=== PATIENT | female | born 1990 | race Caucasian/White ===

== ENCOUNTER 2016-09-07 17:01 | Emergency (ER) | payer OTHER ==
[~2016-09-07] VITALS: Wt 54.4 kg
[~2016-09-07 17:01] MED LIST: AMOXIL500 MG PO; ANAPROX DS550 MG PO; BACTRIM DS 8001 TA1 PO; CALCIUM 500 + D1 TA1 PO; CIPRO500 MG PO; CLARITIN10 MG PO; COLACE100 MG PO; DIFLUCAN100 MG PO; FLEXERIL10 MG PO; FOLIC ACID1 MG PO; KEFLEX500 MG PO; LEVAQUIN250 MG PO; LEVEMIR100 U/ML SC; LEVOFLOXACIN500 MG PO; LISINOPRIL10 MG PO; MACROBID100 M1 PO; MEDROL DOSEPAK4 MG PO; MIRALAX17 GM/PACK PO; MOTRIN600 MG PO; MOTRIN800 MG PO; Motrin,Rufen800 MG PO; NEXIUM40 MG PO; NOVOLIN R100 U/ML SC; NOVOLOG1 UNIT/0.0 SC; NOVOLOG100 U/ML SC; PAMELOR10 MG PO; PRENATAL1 TA7 PO; PROAIR HFA0.09 MG/AC INH; QVAR 80MCG/INH7.3 G1 INH; QVAR40 MCG INH; REGLAN10 MG PO; ROBITUSSIN AC 110 ML PO; SEPTRA DS 800 M1 TAB PO; TYLENOL W/CODEI1 TA2 PO; ULTRAM50 MG PO; VENTOLIN0.09 MG/AC INH; VICODIN 5/500 505 MG PO; VITAMIN D50000 I2 PO; ZANTAC150 MG PO; ZOFRAN ODT8 MG PO; ZOFRAN4 MG PO
[2016-09-07] MEDS ORDERED: LEVEMIR10 ML SC (17:11)
[2016-09-07 17:49] LABS: BILIRUBIN NEGATIVE (NEGATIVE); BLOOD NEGATIVE (NEGATIVE); CLARITY SL CLOUDY (CLEAR); COLOR YELLOW (YELLOW); GLUCOSE 3+ (NEGATIVE); KETONE TRACE (NEGATIVE); LEUKO ESTERASE TRACE (NEGATIVE); NITRITE POSITIVE (NEGATIVE); PROTEIN NEGATIVE (NEGATIVE); UROBILINOGEN 0.2 E.U./dl (0.2-1.0)
[2016-09-07 17:58] LABS: BACTERIA 2+; EPITHELIAL CELLS 15-20; URINE REFLEX COMMENT YES (NO)
[2016-09-07] MEDS ORDERED: DIFLUCAN150 MG PO (18:13)
[2016-09-07] MEDS ORDERED: VIBRAMYCIN100 MG PO (18:13)
[2016-09-07] MEDS ORDERED: LEVAQUIN250 M1 PO (18:13)
== END 2016-09-07 18:17 | disposition home or self-care (01) ==
LOC: ED 17:01
PROVIDERS: Emergency Medicine
DX: N39.0 Urinary tract infection, site not specified (principal); F12.10 Cannabis abuse, uncomplicated; E13.10 Other specified diabetes mellitus with ketoacidosis without coma; Z90.49 Acquired absence of other specified parts of digestive tract; Z98.890 Other specified postprocedural states; Z98.51 Tubal ligation status; Z20.2 Contact with and (suspected) exposure to infections with a predominantly sexual mode of transmission

== ENCOUNTER 2017-03-08 01:13 | Emergency (ER) | payer OTHER ==
[~2017-03-08] VITALS: Ht 162.5 cm; Wt 54.4 kg
[~2017-03-08 01:13] MED LIST changes: +DIFLUCAN150 MG PO; +LEVAQUIN250 M1 PO; +LEVEMIR10 ML SC; +VIBRAMYCIN100 MG PO
[2017-03-08 01:45] LABS: BASO # 0.1 10*3/uL (0.0-0.1); BASO % 0.7 % (0.0-1.0); EOS # 0.1 10*3/uL (0.0-0.4); EOS % 1.3 % (1.0-4.0); HEMATOCRIT 37.1 % (37.0-47.0); HEMOGLOBIN 12.3 g/dl (12.0-16.0); LYMPH # 2.9 10*3/uL (1.3-4.4); LYMPH % 32.6 % (27.0-41.0); MEAN CELL VOLUME 92.3 fl (81.0-99.0); MEAN CORPUSCULAR HGB 30.6 pg (27.0-31.0); MEAN CORPUSCULAR HGB CONC 33.2 g/dl (33.0-37.0); MEAN PLATELET VOLUME 9.8 fl (9.6-12.3); MONO # 0.9 10*3/uL (0.1-1.0); MONO % 10.3 % (3.0-9.0); NEUT # 4.8 10*3/uL (2.3-7.9); NEUT % 54.8 % (47.0-73.0); PLATELET COUNT AUTOMATED 328 10*3/uL (130-400); RED BLOOD COUNT 4.02 10*6/uL (4.10-5.10); RED CELL DISTRI WIDTH 13.2 % (0-14.5); WHITE BLOOD COUNT 8.7 10*3/uL (4.8-10.8)
[2017-03-08 01:56] LABS: BILIRUBIN NEGATIVE (NEGATIVE); BLOOD 1+ (NEGATIVE); CLARITY SL CLOUDY (CLEAR); COLOR YELLOW (YELLOW); GLUCOSE 3+ (NEGATIVE); KETONE NEGATIVE (NEGATIVE); LEUKO ESTERASE TRACE (NEGATIVE); NITRITE NEGATIVE (NEGATIVE); PROTEIN NEGATIVE (NEGATIVE); SPECIFIC GRAVITY <= 1.005 (1.005-1.030); UROBILINOGEN 0.2 E.U./dl (0.2-1.0)
[2017-03-08 02:02] LABS: BUN 17 mg/dl (7-24); CARBON DIOXIDE 27 mmol/L (21-32); CHLORIDE 95 mmol/L (98-107); EST GLOM FILT AFRICAN AMERICAN > 60 ml/min; POTASSIUM 4.3 mmol/L (3.5-5.1); SODIUM 133 mmol/L (136-145)
[2017-03-08 02:05] LABS: B-hCG (QUALITATIVE) NEGATIVE (NEGATIVE)
[2017-03-08 02:06] LABS: GLUCOSE 702 mg/dL (65-99)
[2017-03-08 02:08] LABS: BACTERIA TRACE
[2017-03-08] MEDS ORDERED: NORCO 10-325 T1 EACH PO (03:50)
[2017-03-08] MEDS ORDERED: VALACYCLOVIR HYD1 GM PO (03:50)
== END 2017-03-08 04:20 | disposition home or self-care (01) ==
LOC: ED 01:13
PROVIDERS: Emergency Medicine
DX: B00.9 Herpesviral infection, unspecified (principal); R73.9 Hyperglycemia, unspecified; E13.10 Other specified diabetes mellitus with ketoacidosis without coma; F17.200 Nicotine dependence, unspecified, uncomplicated; F12.10 Cannabis abuse, uncomplicated; Z79.4 Long term (current) use of insulin

== ENCOUNTER 2017-05-24 10:01 | Inpatient (IN) | payer OTHER ==
[~2017-05-24] VITALS: Ht 162.5 cm; Wt 52.2 kg
[2017-05-24 10:01] VITALS: BP 116/66
[~2017-05-24 10:01] MED LIST changes: +NORCO 10-325 T1 EACH PO; +VALACYCLOVIR HYD1 GM PO
[2017-05-24 10:18] LABS: BASO # 0.1 10*3/uL (0.0-0.1); BASO % 0.5 % (0.0-1.0); HEMATOCRIT 39.3 % (37.0-47.0); HEMOGLOBIN 13.5 g/dl (12.0-16.0); LYMPH # 2.1 10*3/uL (1.3-4.4); LYMPH % 10.6 % (27.0-41.0); MEAN CELL VOLUME 89.7 fl (81.0-99.0); MEAN CORPUSCULAR HGB 30.8 pg (27.0-31.0); MEAN CORPUSCULAR HGB CONC 34.4 g/dl (33.0-37.0); MEAN PLATELET VOLUME 9.7 fl (9.6-12.3); MONO # 0.9 10*3/uL (0.1-1.0); MONO % 4.5 % (3.0-9.0); NEUT # 16.3 10*3/uL (2.3-7.9); NEUT % 83.9 % (47.0-73.0); PLATELET COUNT AUTOMATED 478 10*3/uL (130-400); RED BLOOD COUNT 4.38 10*6/uL (4.10-5.10); RED CELL DISTRI WIDTH 12.3 % (0-14.5); WHITE BLOOD COUNT 19.5 10*3/uL (4.8-10.8)
[2017-05-24 10:34] LABS: ALBUMIN 4.3 gm/dl (3.1-4.5); ALKALINE PHOSPHATASE 94 U/L (45-117); BUN 14 mg/dl (7-24); CHLORIDE 99 mmol/L (98-107); CREATININE 0.62 mg/dL (0.55-1.02); POTASSIUM 3.6 mmol/L (3.5-5.1); SGOT/AST 20 IU/L (3-35); SGPT/ALT 20 U/L (12-78); SODIUM 139 mmol/L (136-145); TOTAL PROTEIN 8.6 gm/dL (6.4-8.2)
[2017-05-24 10:40] LABS: ETHYL ALCOHOL < 3.0 mg/dl (<3)
--- NOTE | 2017-05-24 11:00 | NUR ---
VOMITING RETURNS, DR MADE AWARE. AWAITING URINE SPECIMEN.
--- NOTE | 2017-05-24 11:40 | NUR ---
PT UNABLE TO PROVIDE URINE ON BEDPAN, REFUSES CATH SPECIMEN. REMEDICATED FOR NAUSEA NOW. SALINE INFUSED.
[2017-05-24 12:42] LABS: BILIRUBIN NEGATIVE (NEGATIVE); BLOOD NEGATIVE (NEGATIVE); CLARITY SL CLOUDY (CLEAR); COLOR YELLOW (YELLOW); GLUCOSE 2+ (NEGATIVE); KETONE 3+ (NEGATIVE); LEUKO ESTERASE NEGATIVE (NEGATIVE); NITRITE POSITIVE (NEGATIVE); SPECIFIC GRAVITY 1.015 (1.005-1.030); UROBILINOGEN 0.2 E.U./dl (0.2-1.0)
[2017-05-24 12:52] VITALS: BP 102/56
[2017-05-24 12:53] LABS: BACTERIA 3+
[2017-05-24 13:28] LABS: URINE AMPHETAMINES < 1000 (1000ng/ml); URINE BARBITURATES < 200 (200ng/ml); URINE BENZODIAZEPINES < 200 (200ng/ml); URINE CANNABINOIDS (THC) > 50 (50ng/ml); URINE COCAINE < 300 (300ng/ml); URINE METHADONE < 300 (300ng/ml); URINE OPIATES < 300 (300ng/ml); URINE PHENCYCLIDINE < 25 (25ng/ml)
[2017-05-24 14:24] VITALS: BP 102/60
--- NOTE | 2017-05-24 14:25 | NUR ---
ALL TESTING HAS RETURNED, FAMILY HAS LEFT. PT REPORTS ALL NAUSEA HAS RESOLVED BUT THAT SHE JUST FEELS VERY TIRED. AWARE. NO NEW ORDERS, AWAITING PLAN OF CARE DECISION.
--- NOTE | 2017-05-24 15:00 | NUR ---
Time: 1499 A 26 year old FEMALE admitted to under services of PAYTON CRAVEN DO. Pt. arrived via bed from [place]. Chief complaint: NAUSEA AND VOMITTING. MARILEE RODRIGUEZ
--- NOTE | 2017-05-24 15:15 | NUR ---
PT VERY DROWSY AND IS UNABLE TO ANSWER MANY QUESTIONS FOR ADMISSION. ASSESSMENT COMPLETED. BS CHECKED AND FOUND TO BE 207. PT ABLE TO VERIFY HOME INSULIN DOSES.
--- NOTE | 2017-05-24 15:40 | NUR ---
HOME MEDS VERIFIED WITH PATIENT.
--- NOTE | 2017-05-24 15:55 | NUR ---
MALE VISITOR TO THE FLOOR URGING PATIENT TO LEAVE AND PUSHING DOWN ON HER HEAD PER THE MARK ANTHONY FORMAN.
[2017-05-24] MEDS ORDERED: ZOFRAN4 MG PO (16:18)
[2017-05-24] MEDS ORDERED: BACTRIM 400-801 EACH PO (16:18)
--- NOTE | 2017-05-24 16:19 | NUR ---
DR. MITCHELL CALLED THE FLOOR TO SAY THE PATIENT WANTED TO LEAVE AMA BUT THEY WILL DISCHARGE HER.
--- NOTE | 2017-05-24 16:20 | NUR ---
DISCHARGED SIGNED BY PATIENT AND SHE WAS INFORMED OF NEW PRESCRIPTIONS CALLED IN TO HER PHARMACY LISTED ON D/C PAPERWORK.
--- NOTE | 2017-05-24 16:27 | NUR ---
PT DISCHARGED VIA WHEELCHAIR BY THE PA TO PRIVATE CAR IN THE ER PARKING LOT. [place] DISCONTINUED.
== END 2017-05-24 16:27 | disposition home or self-care (01) | DRG 897 ==
LOC: ED 10:01 → EDHOLD 14:38 → 5E 14:57
PROVIDERS: Emergency Medicine; ADMIT Internal Medicine
DX: F10.10 Alcohol abuse, uncomplicated (principal); Q60.0 Renal agenesis, unilateral; N39.0 Urinary tract infection, site not specified; D72.829 Elevated white blood cell count, unspecified; R11.2 Nausea with vomiting, unspecified; D47.3 Essential (hemorrhagic) thrombocythemia; D72.810 Lymphocytopenia; R80.9 Proteinuria, unspecified; R82.4 Acetonuria; R82.71 Bacteriuria; R81 Glycosuria; F12.10 Cannabis abuse, uncomplicated; E10.65 Type 1 diabetes mellitus with hyperglycemia; Z79.4 Long term (current) use of insulin; Z90.49 Acquired absence of other specified parts of digestive tract; Z98.51 Tubal ligation status; Z82.49 Family history of ischemic heart disease and other diseases of the circulatory system; Z83.3 Family history of diabetes mellitus

== ENCOUNTER → 2017-08-05 | Outpatient (CLI) | payer OTHER ==
[~2017-08-05] MED LIST changes: +BACTRIM 400-801 EACH PO
[2017-08-05 11:38] LABS: HEMATOCRIT 41.2 % (37.0-47.0); MEAN CORPUSCULAR HGB 30.2 pg (27.0-31.0); MEAN PLATELET VOLUME 9.7 fl (9.6-12.3); RED BLOOD COUNT 4.63 10*6/uL (4.10-5.10); RED CELL DISTRI WIDTH 13.2 % (0-14.5); WHITE BLOOD COUNT 7.5 10*3/uL (4.8-10.8)
[2017-08-05 12:07] LABS: ALBUMIN 4.1 gm/dl (3.1-4.5); ALKALINE PHOSPHATASE 94 U/L (45-117); BUN 17 mg/dl (7-24); CHLORIDE 98 mmol/L (98-107); CHOLESTEROL 231 mg/dL (<200); CREATININE 0.69 mg/dL (0.55-1.02); HDL CHOLESTEROL 40 mg/dl (40-60); LDL CHOLESTEROL 158 mg/dL (9-159); POTASSIUM 4.4 mmol/L (3.5-5.1); SGOT/AST 15 IU/L (3-35); SGPT/ALT 19 U/L (12-78); SODIUM 132 mmol/L (136-145); TOTAL PROTEIN 8.6 gm/dL (6.4-8.2); TRIGLYCERIDES 167 mg/dl (<150); VLDL CHOLESTEROL 33 mg/dL (6-40)
== END | disposition home or self-care (01) ==
LOC: LAB 11:18
PROVIDERS: Family Medicine
DX: E78.00 Pure hypercholesterolemia, unspecified (principal); E10.9 Type 1 diabetes mellitus without complications; R53.83 Other fatigue; E55.9 Vitamin D deficiency, unspecified

== ENCOUNTER → 2017-11-10 | Outpatient (CLI) | payer OTHER | END | disposition home or self-care (01) | LOC: RAD 14:13 | DX: R07.9 Chest pain, unspecified (principal); R05 Cough ==

== ENCOUNTER 2017-12-29 06:34 | Inpatient (IN) | payer OTHER ==
[~2017-12-29] VITALS: Ht 162.6 cm; Wt 59.9 kg
[2017-12-29] VITALS (7 sets, daily range): BP systolic 114–172; BP diastolic 53–93
--- NOTE | ~2017-12-29 | PR ---
[place], [place] PROGRESS NOTE NAME: MARISOL PIERSON UNIT #: [id number] ROOM: 511 DOCTOR: ROBERTO GLEASON MD BIRTHDATE: [birth year] DOS: 12/30/2017 SUBJECTIVE: The patient is feeling much better. No nausea, vomiting or stomach pains, although she has been refusing to take her potassium and also her blood tests for low potassium. OBJECTIVE: GENERAL APPEARANCE: The patient is alert and oriented x 3, in no visible distress. VITAL SIGNS: Blood pressure 136/65, heart rate of 60 beats per minute, breathing 18 times per minute, temperature 98.2 degrees Fahrenheit. HEENT AND NECK: Exam within normal limits. CARDIOVASCULAR SYSTEM: Heart rate is regular in rate and rhythm. S1 and S2 normally audible. LUNGS: Clear to auscultation. ABDOMEN: Soft, nontender. No obvious organomegaly. Bowel sounds are present. EXTREMITIES: Without significant cyanosis or edema. IMPRESSION: The patient with type 1 diabetes, uncontrolled, although somewhat better controlled these days because the patient is following a better diet, but previously uncontrolled because of the patient's history of alcoholism and poor compliance with treatment. The patient is feeling much better now and she had been refusing to take her potassium supplements as well as a repeat potassium levels to see if it is normal, she could have been discharged to home. Finally, the patient is agreeing and we will see if her potassium level normalizes later today. Urinary tract infection, although urine cultures were negative, was treated with antibiotics. White cell count has improved to 15,000. Urine drug screen positive for opiates and marijuana. Herpes genitalis, suppressed with Valtrex which is being continued. Nausea, vomiting, stomach pains, resolved with use of ondansetron. [place], [place] PROGRESS NOTE NAME: MARISOL PIERSON UNIT #: [id number] ROOM: 511 DOCTOR: ROBERTO GLEASON MD BIRTHDATE: [birth year] ROBERTO GLEASON MD CM:PNTRANS [id number] ROBERTO GLEASON MD 12/30/17 1202 interface
--- NOTE | ~2017-12-29 | WRIGHTHP ---
[place], [place] PATIENT HISTORY AND PHYSICAL EXAM NAME: MARISOL PIERSON [facility] #: [id number] UNIT #: [id number] ROOM: 511 DOCTOR: ROBERTO GLEASON MD BIRTHDATE: [birth year] DOS: 12/29/2017 HISTORY OF PRESENT ILLNESS: The patient is a 27-year-old female with a past medical history of: 1. Type 1 diabetes mellitus. 2. History of nephrectomy, only has one kidney. 3. History of herpes genitalis. 4. History of diabetic ketoacidosis. 5. History of alcohol abuse in the past. 6. The patient presented to the emergency department with intractable nausea, vomiting which started after sharp left flank pain and she was seen in the emergency department with hyperglycemia. The patient was lethargic, very weak with lactic acid elevation of 3.8 and white cell count elevated to 18,000. The patient was recommended for admission with sepsis, hyperglycemia, dehydration and altered mental status. After admission, the patient was difficult to wake up and I got a consult with infectious disease specialist and ordered an urgent MRI of the brain, which did not show any acute abnormality. The patient's urinalysis showed signs of urinary tract infection. After admission and hydration with normal saline, the patient suddenly became alert and oriented and is feeling much better and nausea has improved. No complaints of any chest pain. No other GI or urinary symptoms. REVIEW OF SYSTEMS: LUNGS: No increasing shortness of breath. GASTROINTESTINAL: The patient has nausea, vomiting, which was intractable and recurrent. CARDIOVASCULAR: No chest pains. FAMILY HISTORY: Noncontributory. SOCIAL HISTORY: The patient was positive for marijuana in her urine and opioids and has previous history of alcohol abuse. HOME MEDICATIONS: The patient takes insulin and Valtrex at home. PHYSICAL EXAMINATION: GENERAL: Alert and oriented times 3. HEENT AND NECK: Extraocular movements are intact. Sclerae are anicteric. Oral mucosa is moist and clean. No obvious facial weakness. Neck is supple without any lymphadenopathy. No thyromegaly. No JVD. No carotid arterial bruits. LUNGS: Clear to auscultation. No wheezing. No rhonchi. CARDIOVASCULAR SYSTEM: Heart rate is regular in rate and rhythm. S1 and S2 normally audible. No significant murmur or any other abnormal cardiac sounds. ABDOMEN: Soft, nontender. No obvious organomegaly. Bowel sounds are present. No obvious herniation. EXTREMITIES: Without significant cyanosis or edema. Warm to touch. CENTRAL NERVOUS SYSTEM: Alert and oriented x 3. Cranial nerves II-XII are intact. Speech is normal. The patient is able to move all extremities. Normal muscle strength. Deep tendon reflexes are equal on both sides. Plantars were downgoing. [place], [place] PATIENT HISTORY AND PHYSICAL EXAM NAME: MARISOL PIERSON [facility] #: [id number] UNIT #: [id number] ROOM: [employer] DOCTOR: ROBERTO GLEASON MD BIRTHDATE: [birth year] LABORATORY DATA: Urine drug screen positive for marijuana and opiates. Normal serum electrolytes. White cell count 18,000. Lactic acid level at 3.8, improved to 1.5 with hydration. IMPRESSION: The patient with left pyelonephritis with acute left flank pains and signs of urinary infection to be treated with Rocephin. The patient has white cell count elevated at 18,000 and lactic acid level was 3.8. The patient apparently septic at admission, but is improving with hydration and with antibiotics. The patient also had altered mental status and she was lethargic. Urine drug screen positive for opiates and marijuana. Hyperglycemia and dehydration with nausea, vomiting, improved with treatment with ondansetron and hydration with normal saline, which has been continued. I will monitor her serum electrolytes. Severe leukocytosis with white cell count 18,000. I will repeat a CBC in the morning. The patient has history of herpes genitalis. I will continue her Valtrex that she takes at home. Type 1 diabetes mellitus, being covered with insulin sliding scale every 4 hours and she was continued on her Lantus insulin 25 units daily. ROBERTO GLEASON MD CM:HISPHYS:PATIENT HISTORY AND PHYSICAL EXAMINATION 44 29 ROBERTO GLEASON MD 12/31/17 0843 interface
[2017-12-29 07:11] LABS: BASO # 0.1 10*3/uL (0.0-0.1); BASO % 0.5 % (0.0-1.0); EOS # 0.2 10*3/uL (0.0-0.4); EOS % 1.1 % (1.0-4.0); HEMATOCRIT 43.2 % (37.0-47.0); HEMOGLOBIN 14.7 g/dl (12.0-16.0); LYMPH # 2.7 10*3/uL (1.3-4.4); LYMPH % 14.8 % (27.0-41.0); MEAN CELL VOLUME 88.3 fl (81.0-99.0); MEAN CORPUSCULAR HGB 30.1 pg (27.0-31.0); MEAN PLATELET VOLUME 9.8 fl (9.6-12.3); MONO # 1.4 10*3/uL (0.1-1.0); MONO % 7.6 % (3.0-9.0); NEUT # 13.6 10*3/uL (2.3-7.9); NEUT % 75.6 % (47.0-73.0); PLATELET COUNT AUTOMATED 447 10*3/uL (130-400); RED BLOOD COUNT 4.89 10*6/uL (4.10-5.10); RED CELL DISTRI WIDTH 13.1 % (0-14.5)
[2017-12-29 07:30] LABS: ALBUMIN 4.1 gm/dl (3.1-4.5); ALKALINE PHOSPHATASE 88 U/L (45-117); BUN 22 mg/dl (7-24); CHLORIDE 96 mmol/L (98-107); CREATININE 1.18 mg/dL (0.55-1.02); POTASSIUM 3.7 mmol/L (3.5-5.1); SGOT/AST 19 IU/L (3-35); SGPT/ALT 18 U/L (12-78); SODIUM 134 mmol/L (136-145); TOTAL PROTEIN 8.3 gm/dL (6.4-8.2)
[2017-12-29 07:31] LABS: TROPONIN I < 0.015 ng/ml (<0.045)
[2017-12-29 07:45] LABS: ABG BASE EXCESS 1.4 mmol/L (-2.0-2.0); ABG HCO3 24.8 mmol/l (22-26); ABG O2 SATURATION 94.6 % (95-97); ARTERIAL BLOOD GAS PCO2 36.3 mmHg (35-45); ARTERIAL BLOOD GAS PH 7.448 (7.35-7.45); ARTERIAL BLOOD GAS PO2 68.6 mmHg (80-90)
[2017-12-29 08:55] LABS: BILIRUBIN NEGATIVE (NEGATIVE); BLOOD NEGATIVE (NEGATIVE); CLARITY SL CLOUDY (CLEAR); COLOR YELLOW (YELLOW); GLUCOSE 3+ (NEGATIVE); KETONE 2+ (NEGATIVE); LEUKO ESTERASE NEGATIVE (NEGATIVE); NITRITE NEGATIVE (NEGATIVE); PH 6.5 (5.0-9.0); SPECIFIC GRAVITY <= 1.005 (1.005-1.030); UROBILINOGEN 0.2 E.U./dl (0.2-1.0)
[2017-12-29 09:07] LABS: URINE AMPHETAMINES < 1000 (1000ng/ml); URINE BARBITURATES < 200 (200ng/ml); URINE BENZODIAZEPINES < 200 (200ng/ml); URINE CANNABINOIDS (THC) > 50 (50ng/ml); URINE COCAINE < 300 (300ng/ml); URINE METHADONE < 300 (300ng/ml); URINE OPIATES > 300 (300ng/ml)
[2017-12-29 09:08] LABS: BACTERIA 1+; URINE PHENCYCLIDINE < 25 (25ng/ml)
[2017-12-29] MEDS ORDERED: VALACYCLOVIR H500 MG PO (12:18)
[2017-12-30] VITALS: BP 126/71
[2017-12-30 06:49] LABS: BASO # 0.1 10*3/uL (0.0-0.1); BASO % 0.4 % (0.0-1.0); EOS # 0.2 10*3/uL (0.0-0.4); EOS % 1.2 % (1.0-4.0); LYMPH # 4.7 10*3/uL (1.3-4.4); LYMPH % 31.4 % (27.0-41.0); MEAN CORPUSCULAR HGB 29.6 pg (27.0-31.0); MEAN CORPUSCULAR HGB CONC 32.3 g/dl (33.0-37.0); MONO # 1.2 10*3/uL (0.1-1.0); MONO % 8.1 % (3.0-9.0); NEUT # 8.8 10*3/uL (2.3-7.9); NEUT % 58.5 % (47.0-73.0); PLATELET COUNT AUTOMATED 341 10*3/uL (130-400); RED BLOOD COUNT 3.65 10*6/uL (4.10-5.10); RED CELL DISTRI WIDTH 13.2 % (0-14.5)
[2017-12-30 06:56] LABS: HEMATOCRIT 33.4 % (37.0-47.0); HEMOGLOBIN 10.8 g/dl (12.0-16.0); MEAN CELL VOLUME 91.5 fl (81.0-99.0)
[2017-12-30 06:57] LABS: CHLORIDE 105 mmol/L (98-107); CREATININE 0.59 mg/dL (0.55-1.02); POTASSIUM 2.9 mmol/L (3.5-5.1); SODIUM 140 mmol/L (136-145)
[2017-12-30 07:02] LABS: BUN 11 mg/dl (7-24)
[2017-12-30 08:00] VITALS: BP 136/65
[2017-12-30 12:16] LABS: BILIRUBIN NEGATIVE (NEGATIVE); BLOOD 1+ (NEGATIVE); CLARITY CLOUDY (CLEAR); COLOR YELLOW (YELLOW); GLUCOSE 3+ (NEGATIVE); KETONE 2+ (NEGATIVE); LEUKO ESTERASE NEGATIVE (NEGATIVE); NITRITE NEGATIVE (NEGATIVE); PH 5.5 (5.0-9.0); UROBILINOGEN 0.2 E.U./dl (0.2-1.0)
[2017-12-30 12:54] LABS: BACTERIA 3+; EPITHELIAL CELLS 35-40; WBC 16-20 wbc/hpf (0-5)
== END 2017-12-30 12:41 | disposition left against medical advice (07) | DRG 871 ==
LOC: ED 06:34 → EDHOLD 09:44 → 5E 09:47
PROVIDERS: Emergency Medicine; Internal Medicine; Student in an Organized Health Care Education/Training Program
DX: A41.9 Sepsis, unspecified organism (principal); E10.10 Type 1 diabetes mellitus with ketoacidosis without coma; G93.41 Metabolic encephalopathy; K31.84 Gastroparesis; E10.43 Type 1 diabetes mellitus with diabetic autonomic (poly)neuropathy; N12 Tubulo-interstitial nephritis, not specified as acute or chronic; Z53.21 Procedure and treatment not carried out due to patient leaving prior to being seen by health care provider; E86.0 Dehydration; A60.00 Herpesviral infection of urogenital system, unspecified; F12.10 Cannabis abuse, uncomplicated; F10.20 Alcohol dependence, uncomplicated; Z91.19 Patient's noncompliance with other medical treatment and regimen; Z90.5 Acquired absence of kidney; Z79.4 Long term (current) use of insulin; Z79.899 Other long term (current) drug therapy; Z90.49 Acquired absence of other specified parts of digestive tract; Z98.51 Tubal ligation status; Z98.891 History of uterine scar from previous surgery; Z82.49 Family history of ischemic heart disease and other diseases of the circulatory system; Z83.3 Family history of diabetes mellitus; F11.10 Opioid abuse, uncomplicated

== ENCOUNTER 2017-12-31 03:56 | Inpatient (IN) | payer OTHER ==
[~2017-12-31] VITALS: Ht 162.5 cm; Wt 59.4 kg
[2017-12-31] VITALS (7 sets, daily range): BP systolic 112–168; BP diastolic 59–86
--- NOTE | ~2017-12-31 | PR ---
[place], [place] PROGRESS NOTE NAME: MARISOL PIERSON [facility] #: [id number] UNIT #: [id number] ROOM: 518 DOCTOR: ROBERTO GLEASON MD BIRTHDATE: [birth year] DOS: 01/01/2018 SUBJECTIVE: The patient's vomiting has resolved and she would like to start eating now. OBJECTIVE: VITAL SIGNS: Blood pressure 148/72, heart rate 59 beats per minute, breathing 16 times per minute, temperature 98.7 degrees Fahrenheit. GENERAL APPEARANCE: The patient is alert and oriented x 3, in no visible distress. HEENT AND NECK: Exam within normal limits. CARDIOVASCULAR SYSTEM: Heart rate is regular in rate and rhythm. S1 and S2 normally audible. LUNGS: Clear to auscultation. ABDOMEN: Soft, nontender. No obvious organomegaly. Bowel sounds are present. EXTREMITIES: Without significant cyanosis or edema. IMPRESSION: 1. The patient's severe nausea and vomiting have improved and she is starting to feel better and would like to start eating this morning, which is very encouraging. 2. Hypokalemia, for which she has been refusing potassium supplements, is getting even worse. I will give her extra potassium supplements. The patient also had been refusing IV potassium because it avendano. 3. Uncontrolled type 1 diabetes mellitus with poor compliance with treatment and diet. Hemoglobin A1c of 11.2. 4. Diabetic gastroparesis, improving with treatment. Apparently, the only medication that has worked for her so far for symptom relief is Reglan. 5. Recurrent herpes genitalis. The patient is on Valtrex. 6. Severe leukocytosis, resolved. ROBERTO GLEASON MD CM:PNTRANS [id number] ROBERTO GLEASON MD 01/01/18 1014 interface
--- NOTE | ~2017-12-31 | WRIGHTHP ---
[place], [place] PATIENT HISTORY AND PHYSICAL EXAM NAME: MARISOL PIERSON [facility] #: [id number] UNIT #: [id number] ROOM: 518 DOCTOR: ROBERTO GLEASON MD BIRTHDATE: [birth year] DOS: 12/31/2017 HISTORY OF PRESENT ILLNESS: The patient presented again to the Emergency Department for persistent vomiting for 3-4 hours and hyperglycemia along with significant abdominal pains. The patient was feeling very weak and worn out. The patient had just signed out against medical advice from the hospital yesterday because she was starting to feel better. No fever or chills. No chest pains. Her blood sugar was 250 at home. Even after admission, the patient is still complaining of significant abdominal pains and nausea and she is unable to keep any food down. REVIEW OF SYSTEMS: LUNGS: No increasing shortness of breath. GASTROINTESTINAL: Persistent nausea, vomiting, abdominal pains. CARDIOVASCULAR: No chest pains or palpitations. Urine drug screen was positive for marijuana. Normal serum electrolytes except for potassium low at 3.3. Lactic acid level was 1.8. FAMILY HISTORY: Noncontributory. ALLERGIES: No known drug allergies. HOME MEDICATIONS: The patient takes insulin, Zofran, Valtrex at home. PHYSICAL EXAMINATION: GENERAL: Alert, oriented, looking somewhat uncomfortable, but in no distress. VITAL SIGNS: Blood pressure 141/59, heart rate of 52 beats per minute, breathing 20 times per minute, temperature 98.3 degrees Fahrenheit. HEENT AND NECK: Extraocular movements are intact. Sclerae are anicteric. Oral mucosa is moist and clean. No obvious facial weakness. Neck is supple without any lymphadenopathy. No thyromegaly. No JVD. No carotid arterial bruits. LUNGS: Clear to auscultation. No wheezing. No rhonchi. CARDIOVASCULAR SYSTEM: Heart rate is regular in rate and rhythm. S1 and S2 normally audible. No significant murmur or any other abnormal cardiac sounds. ABDOMEN: Some epigastric tenderness on palpation. No rigidity, guarding or rebound tenderness. Bowel sounds are present. EXTREMITIES: Without significant cyanosis or edema. Warm to touch. CENTRAL NERVOUS SYSTEM: Alert and oriented x 3. Cranial nerves II-XII are intact. Speech is normal. The patient is able to move all extremities. Normal muscle strength. Deep tendon reflexes are equal on both sides. Plantars were downgoing. LABORATORY DATA: Urine drug screen positive for marijuana. Urine cultures are negative. Hemoglobin A1c elevated at 11.2. IMPRESSION: 1. The patient with type 1 diabetes mellitus with uncontrolled blood sugars and hemoglobin A1c of 11.2 and poor compliance with treatment. I will keep her on insulin and hydration with normal saline. [place], [place] PATIENT HISTORY AND PHYSICAL EXAM [facility]: [id number] UNIT #: [id number] ROOM: 8 DOCTOR: ROBERTO GLEASON MD BIRTHDATE: [birth year] 2. Diabetic gastroparesis with recurrent nausea and vomiting, being treated with ondansetron. I will add Reglan to the treatment. 3. Recurrent herpes genitalis, for which she takes Valtrex, which has been continued. 4. The patient with recent hypokalemia from vomiting. Her serum electrolytes will be monitored and treated. 5. Severe leukocytosis, which will also be followed with repeat blood counts. ROBERTO GLEASON MD CM:HISPHYS:PATIENT HISTORY AND PHYSICAL EXAMINATION 13 35 ROBERTO GLEASON MD 12/31/171934 interface
--- NOTE | ~2017-12-31 | PR ---
[place], [place] PROGRESS NOTE NAME: MARISOL PIERSON [facility]IN [facility] #: [id number] UNIT #: [id number] ROOM: 518 DOCTOR: BENITO LONGORIA MD BIRTHDATE: [birth year] DOS: 01/02/2018 SUBJECTIVE: The patient is doing fine without any complaints. Blood sugar was low and she did receive some glucagon. This morning, the patient feels good, has no complaints. OBJECTIVE: VITAL SIGNS: Graphic trend shows pressure 144/70, pulse of 60, respirations 20, temperature 98.1. LUNGS: Clear. HEART: Regular. ABDOMEN: Soft. EXTREMITIES: Without any edema. LABORATORY DATA: WBC count is normal at 9.9. BMP: Glucose 151, BUN 8, creatinine 0.61. Electrolytes were normal. Potassium 2.6. ASSESSMENT AND PLAN: 1. The patient with nausea, vomiting, possibly gastroparesis, improved with Reglan. 2. Type 1 diabetes mellitus, controlled blood sugars. 3. Hypokalemia. Awaiting the potassium levels. Depending on that, will plan on discharging the patient. BENITO LONGORIA MD CM:PNTRANS [id number] BENITO LONGORIA MD 01/03/18 0054 interface
--- NOTE | ~2017-12-31 | DS ---
[place], [place] DISCHARGE SUMMARY NAME: MARISOL PIERSON [facility] #: [id number] UNIT #: [id number] ROOM: 518 DOCTOR: BENITO LONGORIA MD BIRTHDATE: [birth year] DOS: 01/02/2018 HOSPITAL COURSE: The patient of Dr. Moore, comes in with complaints of abdominal pain, nausea, vomiting. Please see H and P dictated by Dr. Munoz for further details. After admission, the patient was given IV fluids, IV Reglan. This seems to have corrected her nausea and emesis. She most likely has underlying gastroparesis. She is hypokalemic. Supplementation was given yesterday. I do not have the labs from this morning. Her blood sugars have been controlled and slightly on the low side here. The patient is stable and is not having any new problems. The plan is therefore to discharge her to home today. Once we have the basic metabolic panel results, she may need potassium supplements for home. BENITO LONGORIA MD CM:DISCHARG 0822 BENITO LONGORIA MD 01/02/18 0902 interface
[~2017-12-31 03:56] MED LIST changes: +VALACYCLOVIR H500 MG PO
[2017-12-31 05:08] LABS: BASO # 0.1 10*3/uL (0.0-0.1); BASO % 0.5 % (0.0-1.0); EOS # 0.1 10*3/uL (0.0-0.4); EOS % 1.1 % (1.0-4.0); HEMATOCRIT 36.6 % (37.0-47.0); HEMOGLOBIN 12.1 g/dl (12.0-16.0); LYMPH % 30.4 % (27.0-41.0); MEAN CORPUSCULAR HGB 30.1 pg (27.0-31.0); MEAN CORPUSCULAR HGB CONC 33.1 g/dl (33.0-37.0); MEAN PLATELET VOLUME 9.8 fl (9.6-12.3); MONO # 0.7 10*3/uL (0.1-1.0); MONO % 5.1 % (3.0-9.0); NEUT # 8.1 10*3/uL (2.3-7.9); NEUT % 62.7 % (47.0-73.0); PLATELET COUNT AUTOMATED 367 10*3/uL (130-400); RED BLOOD COUNT 4.02 10*6/uL (4.10-5.10); RED CELL DISTRI WIDTH 13.2 % (0-14.5)
[2017-12-31 05:15] LABS: BILIRUBIN NEGATIVE (NEGATIVE); BLOOD TRACE-INTACT (NEGATIVE); CLARITY CLEAR (CLEAR); COLOR YELLOW (YELLOW); GLUCOSE 3+ (NEGATIVE); KETONE 1+ (NEGATIVE); LEUKO ESTERASE NEGATIVE (NEGATIVE); NITRITE NEGATIVE (NEGATIVE); UROBILINOGEN 0.2 E.U./dl (0.2-1.0)
[2017-12-31 05:37] LABS: BACTERIA TRACE
[2017-12-31 06:19] LABS: ALBUMIN 3.2 gm/dl (3.1-4.5); ALKALINE PHOSPHATASE 75 U/L (45-117); BUN 11 mg/dl (7-24); CHLORIDE 105 mmol/L (98-107); CREATININE 0.66 mg/dL (0.55-1.02); POTASSIUM 3.3 mmol/L (3.5-5.1); SGOT/AST 163 IU/L (3-35); SGPT/ALT 86 U/L (12-78); SODIUM 140 mmol/L (136-145); TOTAL PROTEIN 6.4 gm/dL (6.4-8.2)
[2017-12-31 06:21] LABS: LIPASE 163 U/L (73-393)
[2017-12-31 06:22] LABS: BETA-HCG, QUANT < 1.0 mIU/mL (1-3); TROPONIN I < 0.015 ng/ml (<0.045)
[2017-12-31 06:45] LABS: URINE AMPHETAMINES < 1000 (1000ng/ml); URINE BARBITURATES < 200 (200ng/ml); URINE BENZODIAZEPINES < 200 (200ng/ml); URINE CANNABINOIDS (THC) > 50 (50ng/ml); URINE COCAINE < 300 (300ng/ml); URINE METHADONE < 300 (300ng/ml); URINE OPIATES < 300 (300ng/ml)
[2017-12-31 06:47] LABS: URINE PHENCYCLIDINE < 25 (25ng/ml)
[2018-01-01 00:10] VITALS: BP 154/70
[2018-01-01 06:57] LABS: BASO # 0.1 10*3/uL (0.0-0.1); BASO % 0.7 % (0.0-1.0); EOS # 0.1 10*3/uL (0.0-0.4); HEMATOCRIT 33.9 % (37.0-47.0); HEMOGLOBIN 11.3 g/dl (12.0-16.0); LYMPH # 4.3 10*3/uL (1.3-4.4); LYMPH % 43.7 % (27.0-41.0); MEAN CELL VOLUME 89.9 fl (81.0-99.0); MEAN CORPUSCULAR HGB CONC 33.3 g/dl (33.0-37.0); MEAN PLATELET VOLUME 9.9 fl (9.6-12.3); MONO # 0.7 10*3/uL (0.1-1.0); NEUT # 4.7 10*3/uL (2.3-7.9); NEUT % 47.3 % (47.0-73.0); PLATELET COUNT AUTOMATED 322 10*3/uL (130-400); RED BLOOD COUNT 3.77 10*6/uL (4.10-5.10); RED CELL DISTRI WIDTH 13.2 % (0-14.5); WHITE BLOOD COUNT 9.9 10*3/uL (4.8-10.8)
[2018-01-01 07:14] LABS: BUN 8 mg/dl (7-24); CHLORIDE 103 mmol/L (98-107); CREATININE 0.61 mg/dL (0.55-1.02); POTASSIUM 2.6 mmol/L (3.5-5.1); SODIUM 138 mmol/L (136-145)
[2018-01-01 08:00] VITALS: BP 148/72
[2018-01-01 12:00] VITALS: BP 152/84
[2018-01-01 16:00] VITALS: BP 146/80
[2018-01-01 20:00] VITALS: BP 154/76
[2018-01-02] VITALS: BP 154/89
[2018-01-02 08:00] VITALS: BP 144/70
[2018-01-02] MEDS ORDERED: REGLAN5 MG PO (08:18)
[2018-01-02] MEDS ORDERED: K-TAB10 MEQ PO (08:21)
[2018-01-02 08:43] LABS: BUN 5 mg/dl (7-24); CHLORIDE 103 mmol/L (98-107); POTASSIUM 2.9 mmol/L (3.5-5.1); SODIUM 139 mmol/L (136-145)
[2018-01-02 12:00] VITALS: BP 155/81
[2018-01-02 16:00] VITALS: BP 146/82
[2018-01-02 16:06] LABS: BUN 6 mg/dl (7-24); CHLORIDE 100 mmol/L (98-107); CREATININE 0.86 mg/dL (0.55-1.02); POTASSIUM 3.6 mmol/L (3.5-5.1); SODIUM 135 mmol/L (136-145)
== END 2018-01-02 18:24 | disposition home or self-care (01) | DRG 74 ==
LOC: ED 03:56 → EDHOLD 06:23 → 5E 06:23
PROVIDERS: Emergency Medicine Emergency Medical Services; Internal Medicine
DX: E10.43 Type 1 diabetes mellitus with diabetic autonomic (poly)neuropathy (principal); E10.65 Type 1 diabetes mellitus with hyperglycemia; E87.6 Hypokalemia; K31.84 Gastroparesis; Z79.4 Long term (current) use of insulin; Z90.49 Acquired absence of other specified parts of digestive tract; Z98.891 History of uterine scar from previous surgery; Z98.51 Tubal ligation status; Z72.89 Other problems related to lifestyle; Z82.49 Family history of ischemic heart disease and other diseases of the circulatory system; Z83.3 Family history of diabetes mellitus

== ENCOUNTER 2018-03-04 17:48 | Emergency (ER) | payer OTHER ==
[~2018-03-04] VITALS: Ht 162.5 cm; Wt 52.2 kg
[~2018-03-04 17:48] MED LIST changes: +K-TAB10 MEQ PO; +REGLAN5 MG PO
[2018-03-04 18:26] LABS: BASO # 0.1 10*3/uL (0.0-0.1); BASO % 0.6 % (0.0-1.0); EOS # 0.1 10*3/uL (0.0-0.4); EOS % 0.9 % (1.0-4.0); HEMOGLOBIN 13.9 g/dl (12.0-16.0); LYMPH # 3.1 10*3/uL (1.3-4.4); MEAN CELL VOLUME 89.1 fl (81.0-99.0); MEAN CORPUSCULAR HGB 30.2 pg (27.0-31.0); MEAN CORPUSCULAR HGB CONC 33.9 g/dl (33.0-37.0); MEAN PLATELET VOLUME 9.5 fl (9.6-12.3); MONO # 0.6 10*3/uL (0.1-1.0); MONO % 5.6 % (3.0-9.0); NEUT # 6.9 10*3/uL (2.3-7.9); NEUT % 63.6 % (47.0-73.0); PLATELET COUNT AUTOMATED 448 10*3/uL (130-400); RED CELL DISTRI WIDTH 13.4 % (0-14.5); WHITE BLOOD COUNT 10.8 10*3/uL (4.8-10.8)
[2018-03-04 18:36] LABS: ACT PARTIAL THROMBO TIME 23.8 SECONDS (20.8-31.5)
[2018-03-04 18:40] LABS: ALBUMIN 4.1 gm/dl (3.1-4.5); ALKALINE PHOSPHATASE 66 U/L (45-117); BUN 8 mg/dl (7-24); CHLORIDE 105 mmol/L (98-107); CREATININE 0.73 mg/dL (0.55-1.02); LIPASE 74 U/L (73-393); SGOT/AST 9 IU/L (3-35); SGPT/ALT 16 U/L (12-78); SODIUM 137 mmol/L (136-145); TOTAL PROTEIN 8.2 gm/dL (6.4-8.2)
[2018-03-04 18:44] LABS: BETA-HCG, QUANT < 1.0 mIU/mL (1-3)
[2018-03-04 19:14] LABS: BILIRUBIN NEGATIVE (NEGATIVE); BLOOD NEGATIVE (NEGATIVE); CLARITY CLEAR (CLEAR); COLOR YELLOW (YELLOW); GLUCOSE 3+ (NEGATIVE); KETONE NEGATIVE (NEGATIVE); LEUKO ESTERASE NEGATIVE (NEGATIVE); NITRITE NEGATIVE (NEGATIVE); PH 5.5 (5.0-9.0); SPECIFIC GRAVITY 1.015 (1.005-1.030); UROBILINOGEN 0.2 E.U./dl (0.2-1.0)
[2018-03-04 19:19] LABS: BACTERIA 3+; EPITHELIAL CELLS 15-20; RBC 0-2 rbc/hpf (0-2)
[2018-03-04] MEDS ORDERED: CYCLOBENZAPRINE10 MG PO (22:57)
[2018-03-04] MEDS ORDERED: SEPTDS PO (22:57)
== END 2018-03-04 23:25 | disposition home or self-care (01) ==
LOC: ED 17:48
PROVIDERS: Emergency Medicine
DX: S39.012A Strain of muscle, fascia and tendon of lower back, initial encounter (principal); N39.0 Urinary tract infection, site not specified; E10.65 Type 1 diabetes mellitus with hyperglycemia; F12.10 Cannabis abuse, uncomplicated; Z79.4 Long term (current) use of insulin; Z79.899 Other long term (current) drug therapy; Z90.49 Acquired absence of other specified parts of digestive tract; Z98.51 Tubal ligation status; Z98.890 Other specified postprocedural states; X58.XXXA Exposure to other specified factors, initial encounter; Y93.89 Activity, other specified; Y92.89 Other specified places as the place of occurrence of the external cause; Y99.9 Unspecified external cause status

== ENCOUNTER 2019-07-04 07:13 | Emergency (ER) | payer OTHER ==
[~2019-07-04] VITALS: Ht 162.5 cm; Wt 54.4 kg
[~2019-07-04 07:13] MED LIST changes: +CYCLOBENZAPRINE10 MG PO; +SEPTDS PO
[2019-07-04 07:45] LABS: BASO # 0.1 10*3/uL (0.0-0.1); BASO % 0.7 % (0.0-1.0); EOS # 0.1 10*3/uL (0.0-0.4); EOS % 0.9 % (1.0-4.0); HEMATOCRIT 44.8 % (37.0-47.0); HEMOGLOBIN 14.6 g/dl (12.0-16.0); LYMPH % 16.6 % (27.0-41.0); MEAN CELL VOLUME 92.9 fl (81.0-99.0); MEAN CORPUSCULAR HGB 30.3 pg (27.0-31.0); MEAN CORPUSCULAR HGB CONC 32.6 g/dl (33.0-37.0); MONO # 0.5 10*3/uL (0.1-1.0); MONO % 3.9 % (3.0-9.0); NEUT # 9.4 10*3/uL (2.3-7.9); NEUT % 77.7 % (47.0-73.0); PLATELET COUNT AUTOMATED 449 10*3/uL (130-400); RED BLOOD COUNT 4.82 10*6/uL (4.10-5.10); RED CELL DISTRI WIDTH 12.8 % (0-14.5); WHITE BLOOD COUNT 12.1 10*3/uL (4.8-10.8)
[2019-07-04 07:45] LABS: BILIRUBIN NEGATIVE (NEGATIVE); BLOOD NEGATIVE (NEGATIVE); CLARITY SL CLOUDY (CLEAR); COLOR YELLOW (YELLOW); GLUCOSE 3+ (NEGATIVE); KETONE 3+ (NEGATIVE); LEUKO ESTERASE NEGATIVE (NEGATIVE); NITRITE NEGATIVE (NEGATIVE); PH 5.5 (5.0-9.0); UROBILINOGEN 0.2 E.U./dl (0.2-1.0)
[2019-07-04 07:59] LABS: ALBUMIN 4.3 gm/dl (3.1-4.5); ALKALINE PHOSPHATASE 97 U/L (45-117); BUN 22 mg/dl (7-24); CHLORIDE 96 mmol/L (98-107); CREATININE 1.17 mg/dL (0.55-1.02); SGOT/AST 14 IU/L (3-35); SGPT/ALT 16 U/L (12-78); SODIUM 132 mmol/L (136-145); TOTAL PROTEIN 8.7 gm/dL (6.4-8.2)
[2019-07-04 08:10] LABS: BACTERIA 1+
[2019-07-04 08:45] LABS: ABG HCO3 16.3 mmol/l (22-26); ABG O2 SATURATION 98.1 % (95-97); ARTERIAL BLOOD GAS PCO2 32.2 mmHg (35-45); ARTERIAL BLOOD GAS PH 7.32 (7.35-7.45); ARTERIAL BLOOD GAS PO2 96.9 mmHg (80-90)
[2019-07-04 08:46] LABS: ABG BASE EXCESS -8.6 mmol/L (-2.0-2.0)
[2019-07-04] MEDS ORDERED: ZOFRAN4 MG PO (10:48)
== END 2019-07-04 10:59 | disposition home or self-care (01) ==
LOC: ED 07:13
PROVIDERS: Emergency Medicine
DX: K29.70 Gastritis, unspecified, without bleeding (principal); E10.65 Type 1 diabetes mellitus with hyperglycemia; J02.9 Acute pharyngitis, unspecified; F17.200 Nicotine dependence, unspecified, uncomplicated; Z79.899 Other long term (current) drug therapy; Z79.4 Long term (current) use of insulin; Z90.49 Acquired absence of other specified parts of digestive tract

== ENCOUNTER 2020-01-21 09:43 | Emergency (ER) | payer OTHER ==
[~2020-01-21] VITALS: Ht 162.5 cm; Wt 56.7 kg
[2020-01-21 10:44] LABS: BILIRUBIN NEGATIVE (NEGATIVE); BLOOD 3+ (NEGATIVE); CLARITY CLEAR (CLEAR); COLOR YELLOW (YELLOW); GLUCOSE 3+ (NEGATIVE); KETONE 3+ (NEGATIVE); LEUKO ESTERASE 2+ (NEGATIVE); NITRITE POSITIVE (NEGATIVE); SPECIFIC GRAVITY 1.015 (1.005-1.030); UROBILINOGEN 0.2 E.U./dl (0.2-1.0)
[2020-01-21 10:54] LABS: WBC TNTC wbc/hpf (0-5)
[2020-01-21 10:58] LABS: ALBUMIN 3.4 gm/dl (3.1-4.5); ALKALINE PHOSPHATASE 98 U/L (45-117); BUN 9 mg/dl (7-24); CHLORIDE 98 mmol/L (98-107); CREATININE 0.96 mg/dL (0.55-1.02); POTASSIUM 3.4 mmol/L (3.5-5.1); SGOT/AST 7 IU/L (3-35); SGPT/ALT 14 U/L (12-78); SODIUM 131 mmol/L (136-145); TOTAL PROTEIN 7.7 gm/dL (6.4-8.2)
[2020-01-21 11:00] LABS: HEMATOCRIT 37.6 % (37.0-47.0); MEAN CELL VOLUME 91.9 fl (81.0-99.0); MEAN CORPUSCULAR HGB 31.1 pg (27.0-31.0); MEAN CORPUSCULAR HGB CONC 33.8 g/dl (33.0-37.0); PLATELET COUNT AUTOMATED 342 10*3/uL (130-400); RED BLOOD COUNT 4.09 10*6/uL (4.10-5.10); RED CELL DISTRI WIDTH 12.6 % (0-14.5); WHITE BLOOD COUNT 21.9 10*3/uL (4.8-10.8)
[2020-01-21 11:03] LABS: DOHLE BODIES FEW; PLATELET SUFFICIENCY NORMAL (NORMAL); TOTAL CELLS COUNTED 100 #CELLS; TOXIC GRANULATION SLIGHT
[2020-01-21 11:04] LABS: POLYCHROMASIA SLIGHT
[2020-01-21] MEDS ORDERED: CIPRO500 MG PO (12:52)
== END 2020-01-21 13:50 | disposition home or self-care (01) ==
LOC: ED 09:43
PROVIDERS: Nurse Practitioner Family
DX: N12 Tubulo-interstitial nephritis, not specified as acute or chronic (principal); E11.65 Type 2 diabetes mellitus with hyperglycemia; R11.2 Nausea with vomiting, unspecified; Z79.899 Other long term (current) drug therapy; Z79.4 Long term (current) use of insulin

== ENCOUNTER 2020-01-22 07:26 | Inpatient (IN) | payer OTHER ==
[~2020-01-22] VITALS: Ht 162.5 cm; Wt 54.7 kg
[2020-01-22 07:33] VITALS: BP 126/79
--- NOTE | 2020-01-22 08:16 | NUR ---
PT WITH AN EPISODE OF VOMITING. PROVIDER MADE AWARE
[2020-01-22 08:43] LABS: HEMATOCRIT 35.3 % (37.0-47.0); MEAN CELL VOLUME 92.2 fl (81.0-99.0); MEAN CORPUSCULAR HGB 31.6 pg (27.0-31.0); MEAN CORPUSCULAR HGB CONC 34.3 g/dl (33.0-37.0); MEAN PLATELET VOLUME 9.8 fl (9.6-12.3); PLATELET COUNT AUTOMATED 280 10*3/uL (130-400); RED BLOOD COUNT 3.83 10*6/uL (4.10-5.10); RED CELL DISTRI WIDTH 12.7 % (0-14.5); WHITE BLOOD COUNT 19.4 10*3/uL (4.8-10.8)
[2020-01-22 08:59] LABS: ALKALINE PHOSPHATASE 100 U/L (45-117); BUN 11 mg/dl (7-24); CHLORIDE 98 mmol/L (98-107); CREATININE 0.94 mg/dL (0.55-1.02); LIPASE 32 U/L (73-393); POTASSIUM 3.2 mmol/L (3.5-5.1); SGOT/AST 10 IU/L (3-35); SGPT/ALT 13 U/L (12-78); SODIUM 129 mmol/L (136-145); TOTAL PROTEIN 7.1 gm/dL (6.4-8.2)
[2020-01-22 09:02] LABS: TOTAL CELLS COUNTED 100 #CELLS
--- NOTE | 2020-01-22 09:02 | NUR ---
PT IS RESTING IN BED TALKING ON HER CELLPHONE. PT APPEARS TO BE MORE COMFORTABLE AT THIS TIME. RESPIRATIONS ARE EASY AND NONLABORED.
[2020-01-22 09:03] LABS: DOHLE BODIES FEW; PLATELET SUFFICIENCY NORMAL (NORMAL); POLYCHROMASIA SLIGHT; TOXIC GRANULATION SLIGHT; VACUOLATION OF NEUTROPHILS SLIGHT
[2020-01-22 09:21] VITALS: BP 126/76
--- NOTE | 2020-01-22 09:53 | NUR ---
MSTime: 0953 A 29 year old FEMALE admitted to 5E under services of LIZZY HUYNH DO. Pt. arrived via bed from ER. Chief complaint: N/V, HEADACHE, BACKACHE AND ABD PAIN X 2 DAYS. AILEEN JOHN.
--- NOTE | 2020-01-22 09:54 | NUR ---
IN TO SEE PATIENT.
[2020-01-22 10:06] VITALS: BP 129/95
--- NOTE | 2020-01-22 10:45 | NUR ---
IV ZOFRAN AND IV MORPHINE GIVEN PER PRN ORDER FOR NAUSEA/VOMITING AND RUQ PAIN. RATES PAIN /. WILL MONITOR EFFECTIVENESS.
--- NOTE | 2020-01-22 11:32 | NUR ---
PATIENT HAS OWN INSULIN PUMP. PT INFORMED REGARDING BSG OF 326. PATIENT ABLE TO MAINTAIN INSULIN PUMP. INSULIN ADMINISTERED VIA PUMP AT THIS TIME. WILL CONTINUE TO MONITOR. IVF INFUSING PER ORDER.
[2020-01-22 11:38] LABS: BILIRUBIN NEGATIVE (NEGATIVE); BLOOD 3+ (NEGATIVE); CLARITY SL CLOUDY (CLEAR); COLOR YELLOW (YELLOW); GLUCOSE 3+ (NEGATIVE); KETONE 3+ (NEGATIVE); NITRITE NEGATIVE (NEGATIVE); UROBILINOGEN 0.2 E.U./dl (0.2-1.0)
[2020-01-22 11:39] LABS: LEUKO ESTERASE NEGATIVE (NEGATIVE)
[2020-01-22 11:42] LABS: BACTERIA 3+; MUCOUS 1+; WBC 41-50 wbc/hpf (0-5)
--- NOTE | 2020-01-22 11:45 | NUR ---
ZOFRAN/MORPHINE RELIEVING NAUSEA NAD PAIN. WILL CONTINUE TO MONITOR. IVF MAINTAINED.
[2020-01-22 12:00] VITALS: BP 125/89
--- NOTE | 2020-01-22 14:26 | NUR ---
BSG CHECKED AT THIS TIME PER PT REQUEST. BSG 290. WILL CONTINUE TO MONITOR.
--- NOTE | 2020-01-22 14:30 | NUR ---
BLOOD SUGAR CHECKED AT THIS TIME PER PT REQUEST. BSG 260. WILL CONTINUE TO MONITOR.
--- NOTE | 2020-01-22 14:32 | NUR ---
PATIENT REFUSED PO K-DUR. NOTIFIED.
[2020-01-22 16:00] VITALS: BP 147/83
--- NOTE | 2020-01-22 16:21 | NUR ---
PT REQUESTED AND RECEIVED IV ZOFRAN PER PRN ORDER FOR C/O NAUSEA/VOMITING. WILL MONITOR EFFECTIVENESS. IVF MAINTAINED.
--- NOTE | 2020-01-22 16:24 | NUR ---
PT REQUESTED AND RECEIVED IV MORPHINE PER PRN ORDER FOR C/O ABD PAIN. RATES PAIN 8/10. WILL MONITOR EFFECTIVENESS.
--- NOTE | 2020-01-22 17:21 | NUR ---
ZOFRAN EFFECTIVE AT THIS TIME.
--- NOTE | 2020-01-22 17:24 | NUR ---
MORPHINE RELIEVING PAIN PER PT. WILL CONTINUE TO MONITOR.
--- NOTE | 2020-01-22 20:05 | NUR ---
INFORMED THAT PATIENT IS HAVING SEVERE NAUSEA WITH EMEIS, ZOFRAN IS NOT EFFECTIVE AT THIS WITH NEXT DOSE NOT DUE TILL 2219. PATIENT IS HAVING IDIGESTION WELL WITH EMESIS AND BELCHING/PAIN. DOCTOR STATED HE WILL ORDER GI COCKTAIL AND PHENERGAN.
[2020-01-22 20:27] VITALS: BP 157/86
--- NOTE | 2020-01-22 20:42 | NUR ---
PHARMACY CALLED AND ASKED TO VERIFIY STAT GI COCKTAIL AND PHENERGAN. STATED THEY WILL DO THEM NOW
--- NOTE | 2020-01-22 20:52 | NUR ---
PATIENT MEDICATED WITH GI COCKTAIL AND PHENERGAN FOR GI UPSET/EMESIS AND NAUSEA. WILL MONITOR
--- NOTE | 2020-01-22 21:00 | NUR ---
PATIENT MEDICATED WITH MORPHINE FOR C/O ABD PAIN 04/16. WILL MONITOR
--- NOTE | 2020-01-22 21:52 | NUR ---
GI COCTAIL AND PHENERGAN WERE EFFECTIVE
--- NOTE | 2020-01-22 22:00 | NUR ---
MORPHINE EFFECTIVE FOR PAIN
--- NOTE | 2020-01-22 22:00 | NUR ---
FINGERSTICK BGM [id number]. PATINET MEDICATED SELF PER INSULIN PUMP.
[2020-01-23 00:28] VITALS: BP 159/77
--- NOTE | 2020-01-23 01:40 | NUR ---
PATIENT RESTING QUIETLY IN BED, EYES CLSOED. NO DISTRESS NOTED. CALL LIGTH WITHIN REACH.
--- NOTE | 2020-01-23 02:03 | NUR ---
PATIENT MEDICATED WITH ZOFRAN FOR C/O NAUSEA. WILL MONITOR
--- NOTE | 2020-01-23 03:03 | NUR ---
ZOFRAN APPEARS EFFECTIVE. RESTING QUIETLY, EYES CLSOED. NO DISTRESS NOTED
--- NOTE | 2020-01-23 04:37 | NUR ---
PATIENT MEDICATED WITH MORPHINE FOR C/O 10/10 ABD PAIN. WILL MONITOR
--- NOTE | 2020-01-23 04:37 | NUR ---
MORPHINE EFFECTIVE FOR PAIN
--- NOTE | 2020-01-23 04:40 | NUR ---
PATIENT MEDICATED WITH PHENERGAN FOR EMESIS AND NAUSEA. WILL MONITOR
--- NOTE | 2020-01-23 05:40 | NUR ---
PATIENT STATED PHENERGAN SOMEWHAT EFFECTIVE AT THIS TIME
--- NOTE | 2020-01-23 06:00 | NUR ---
PATIENT BGM ID [id number] AT THIS TIME. PATIENT MEDICATED PER INSULIN PUMP.
--- NOTE | 2020-01-23 07:00 | NUR ---
INFORMED THAT PATIENT IS HAVINF SEVERE ABDOMEN PAIN AND MORPHINE IS NOT AVAILABLE TILL 0837. PATIENT IS NPO. STATED OK TO GIVE MORPHINE EARLY AT THIS TIME.
--- NOTE | 2020-01-23 07:02 | NUR ---
PATIENT MEDICATED WITH MORPHINE FOR C/O / PAIN.
[2020-01-23 07:04] LABS: BASO % 0.1 % (0.0-1.0); HEMATOCRIT 33.1 % (37.0-47.0); LYMPH # 1.1 10*3/uL (1.3-4.4); LYMPH % 6.4 % (27.0-41.0); MEAN CELL VOLUME 90.9 fl (81.0-99.0); MEAN CORPUSCULAR HGB 30.8 pg (27.0-31.0); MEAN CORPUSCULAR HGB CONC 33.8 g/dl (33.0-37.0); MEAN PLATELET VOLUME 10.6 fl (9.6-12.3); MONO # 1.3 10*3/uL (0.1-1.0); MONO % 7.2 % (3.0-9.0); NEUT # 15.1 10*3/uL (2.3-7.9); NEUT % 85.7 % (47.0-73.0); PLATELET COUNT AUTOMATED 326 10*3/uL (130-400); RED BLOOD COUNT 3.64 10*6/uL (4.10-5.10); RED CELL DISTRI WIDTH 12.7 % (0-14.5); WHITE BLOOD COUNT 17.6 10*3/uL (4.8-10.8)
[2020-01-23 07:17] LABS: ALBUMIN 2.7 gm/dl (3.1-4.5); ALKALINE PHOSPHATASE 99 U/L (45-117); BUN 15 mg/dl (7-24); CHLORIDE 107 mmol/L (98-107); FREE T4 1.03 ng/dl (0.76-1.46); POTASSIUM 3.3 mmol/L (3.5-5.1); SGOT/AST 13 IU/L (3-35); SGPT/ALT 14 U/L (12-78); SODIUM 139 mmol/L (136-145); TOTAL PROTEIN 6.5 gm/dL (6.4-8.2)
[2020-01-23 07:19] LABS: BURR CELLS FEW; DOHLE BODIES FEW; PLATELET SUFFICIENCY NORMAL (NORMAL); TOTAL CELLS COUNTED 100 #CELLS; TOXIC GRANULATION SLIGHT
[2020-01-23 07:22] LABS: THYROID STIM HORMONE (HS) 0.915 uIU/ml (0.358-4.75)
[2020-01-23 08:00] VITALS: BP 146/78
--- NOTE | 2020-01-23 08:00 | NUR ---
Pt states morphine was effective, but that the pain relief dosen't "last long" Resp easy and nonlabored on RA. Call light in reach. will monitor
--- NOTE | 2020-01-23 08:58 | NUR ---
Pt requested and was medicated with Zofran IV for c/o nausea. Call light in reach. Will monitor
--- NOTE | 2020-01-23 09:20 | NUR ---
Eladio Hallman NP notified of pt c/o pain and pain medication not lasting long enough. New orders placed by JIG MILL OPERATOR.
--- NOTE | 2020-01-23 09:30 | NUR ---
Pt medicated with Toradol for c/o abdominal pain per orders. Will monitor
--- NOTE | 2020-01-23 09:45 | NUR ---
ZOFRAN EFFECTIVE PER PT. WILL MONITOR
--- NOTE | 2020-01-23 10:15 | NUR ---
TORADOL EFFECTIVE PER PT. WILL MONITOR
--- NOTE | 2020-01-23 11:36 | NUR ---
PT REQUESTED AND WAS MEDICATED WITH MORPHINE IV FOR C/O ABDOMINAL PAIN 03/16. CALL LIGHT IN REACH. WILL MONITOR
[2020-01-23 12:00] VITALS: BP 142/76
--- NOTE | 2020-01-23 12:15 | NUR ---
MEDICATION EFFECTIVE PER PT
--- NOTE | 2020-01-23 12:34 | NUR ---
Machine Long Goods Helper in to talk to patient. Patient states lives at HOME with 2 KIDS. There are FEW steps in the home. Physician: KORIN CORRAL Pharmacy: [facility] health services: NONE Patient's level of ADLs: INDEPENDENT Patient has working utilities: YES DME: NONE Follow-up physician's appointment after d/c: WILL BE MADE BY HOSPITALIST NURSE DIRECTOR ON DISCHARGE Does patient want to access PORTAL?: NO Discharge plan PT LIVES AT HOME WITH HER TWO KIDS AND IS INDEPENDENT IN HER CARE. DENIES SHE WILL HAVE ANY NEEDS ON DISCHARGE. PLAN IS TO RETURN HOME WHEN MEDICALLY STABLE. WILL CONTINUE TO FOLLOW. PT STATES HER CAR IS IN ER PARKING LOT AND SHE WILL DRIVE HERSELF HOME.. HARRISON WU
--- NOTE | 2020-01-23 12:39 | NUR ---
PT REQUESTED AND WAS MEDICATED WITH PHENEGRAN IV FOR C/O NAUSEA/VOMITING. CALL LIGHT IN REACH. WILL MONITOR
--- NOTE | 2020-01-23 13:15 | NUR ---
PHENEGRAN EFFECTIVE PER PT.
--- NOTE | 2020-01-23 15:40 | NUR ---
PT REQUESTED AND WAS MEDICATED WITH ZOFRAN IV FOR C/O NAUSEA.
[2020-01-23 16:00] VITALS: BP 160/82
--- NOTE | 2020-01-23 16:30 | NUR ---
ZOFRAN EFFECTIVE PER PT
--- NOTE | 2020-01-23 17:00 | NUR ---
TORADOL EFFECTIVE PER PT. WILL MONITOR
--- NOTE | 2020-01-23 18:50 | NUR ---
PT REQUESTED AND WAS MEDICATED WITH PHENEGRAN IV FOR C/O NAUSEA. CALL LIGHT IN REACH. WILL MONITOR
--- NOTE | 2020-01-23 19:40 | NUR ---
PHENERGAN NOT EFFECTIVE PATIENT HAVING LARGE EMESIS.
[2020-01-23 20:41] VITALS: BP 155/66
--- NOTE | 2020-01-23 20:43 | NUR ---
CALLED DR. ORTIZ AND SPOKE WITH HIM ABOUT PATIENT STILL VOMITING AND HAVING PAIN AND TOO EARLIER FOR ANYTHING. DR. ORTIZ SAID TO GIVE ZOFRAN EARLY.
--- NOTE | 2020-01-23 20:53 | NUR ---
ZOFRAN GIVEN PER ORDER FOR NAUSEA/VOMITING. SEE MAR.
--- NOTE | 2020-01-23 21:07 | NUR ---
BEDSIDE GLUCOSE OBTAINED AND NOTIFIED PATIENT AND SHE ADJUSTED HER INSULIN PUMP.
--- NOTE | 2020-01-23 21:37 | NUR ---
TORADOL GIVEN PER ORDER FOR PAIN IN ABD RATED "8" PER PT. SEE MAR.
--- NOTE | 2020-01-23 21:46 | NUR ---
PATIENT WANTED SOMETHING TO "KNOCK ME OUT" RESTORIL GIVEN PER ORDER FOR INSOMNIA.
--- NOTE | 2020-01-23 21:52 | NUR ---
PATIENT STILL HAVING NAUSEA ZOFRAN NOT EFFECTIVE AT THIS TIME. ENCOURAGED PATIENT TO USE BREATHING EXERCISES AND LAY ON HER LEFT SIDE.
--- NOTE | 2020-01-23 22:06 | NUR ---
24 HR chart check completed.
--- NOTE | 2020-01-23 22:27 | NUR ---
PATIENT FINALLY SLEEPING. TORADOL, ZOFRAN AND RESTORIL HELPING WITH PAIN, NAUSEA AND INSOMNIA.
[2020-01-24 00:17] VITALS: BP 149/73
--- NOTE | 2020-01-24 00:28 | NUR ---
PATIENT AWAKEND VOMITNG AGAIN. PHENERGAN GIVEN PER ORDER FOR NAUSEA/VOMITING. SEE MAR.
--- NOTE | 2020-01-24 03:29 | NUR ---
PT. VOMITED AGAIN. ZOFRAN GIVEN PER ORDER FOR NAUSEA/VOMITING. TORADOL GIVEN PER ORDER FOR ABD PAIN. SEE MAR.
--- NOTE | 2020-01-24 04:15 | NUR ---
ZOFRAN NOT EFFECTIVE FOR N/V. PT. JUST HAD EMESIS. TORADOL HELPING WITH PAIN PER PT.
--- NOTE | 2020-01-24 06:39 | NUR ---
PHENERGAN GIVEN PER ORDER FOR NAUSEA. PT. WAS JUST UP TO BATHROOM AND HAD LOOSE STOOL. ALSO SPOKE WITH MOTHER OF PATIENT AND SHE SAID PATIENT HAS HAD EPISODE OF VOMITING AND HX OF IN A HOSPITAL FOR 14 DAYS WITH VOMITING AND HAD SEEN A [employer] BUSINESS ANALYST. 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
[2020-01-24 06:57] LABS: HEMATOCRIT 34.7 % (37.0-47.0); MEAN CELL VOLUME 92.8 fl (81.0-99.0); MEAN CORPUSCULAR HGB 30.7 pg (27.0-31.0); MEAN CORPUSCULAR HGB CONC 33.1 g/dl (33.0-37.0); MEAN PLATELET VOLUME 10.8 fl (9.6-12.3); PLATELET COUNT AUTOMATED 391 10*3/uL (130-400); RED BLOOD COUNT 3.74 10*6/uL (4.10-5.10); RED CELL DISTRI WIDTH 13.1 % (0-14.5); WHITE BLOOD COUNT 18.4 10*3/uL (4.8-10.8)
--- NOTE | 2020-01-24 07:29 | NUR ---
PHENERGAN SEEMS TO BE HELPING AT THIS TIME.
[2020-01-24 07:33] LABS: PLATELET SUFFICIENCY NORMAL (NORMAL); TOTAL CELLS COUNTED 100 #CELLS
[2020-01-24 08:00] VITALS: BP 136/76
--- NOTE | 2020-01-24 08:30 | NUR ---
PT SITTING UP IN BED. RESP-EASY AND REGULAR. C/O NAUSEA, MEDICATING PER EMAR. CALL LIGHT IN REACH. SEE SHIFT ASSESSMENT.
--- NOTE | 2020-01-24 09:30 | NUR ---
YVES DON IN ROOM TO SEE PT.
--- NOTE | 2020-01-24 10:14 | NUR ---
Nutritional Support Services Note: Pt refuses diet copy or instruction at this time. Stressed importance of eaing healthy and watching portion sizes. Will follow as needed. Leny Carlos Rdn Ld
--- NOTE | 2020-01-24 10:40 | NUR ---
PT RESTING IN BED. C/O NAUSEA, MEDICATED WITH BENADRYL IV PER ORDER, SEE EMAR. CALL LIGHT IN REACH. TOLERATING IV BOLUS.
--- NOTE | 2020-01-24 11:00 | NUR ---
PT RESTING IN BED WITH EYES CLOSED. RESP-EASY AND REGULAR. IV FLUIDS INFUSING WITH NO PROBLEM. MEDICATIONS SEEMS TO BE EFFECTIVE. CALL LIGHT IN REACH.
[2020-01-24 12:00] VITALS: BP 140/76
--- NOTE | 2020-01-24 12:00 | NUR ---
PT RESTING IN BED WITH EYES CLOSED. AWAKENS EASILY. RESP-EASY AND REGULAR. IVF INFUSING WITH NO PROBLEM. [id number], SEE EMAR. NO C/O AT THIS TIME. CALL LIGHT IN REACH.
--- NOTE | 2020-01-24 12:35 | NUR ---
PT SITTING UP AT SIDE OF BED, C/O NAUSEA, MEDICATED WITH ZOFRAN IV PER PRN ORDER, SEE EMAR. NO VOMITING NOTED. RESTING BACK IN BED AFTER MEDICATION. NO FURTHER COMPLAINTS AT THIS TIME. CALL LIGHT IN REACH.
--- NOTE | 2020-01-24 13:15 | NUR ---
PT RESTING IN BED WITH EYES CLOSED, AWAKENS EASILY. MEDICATION SEEMS TO BE EFFECTIVE. NO C/O AT THIS TIME. CALL LIGHT IN REACH.
--- NOTE | 2020-01-24 13:47 | NUR ---
PT VOMITING SMALL AMOUNT IN GARBAGE CAN. MEDICATED WITH PHENERGAN IV PER PRN ORDER, SEE EMAR. IVF INFUSING WITH NO PROBLEM. CALL LIGHT IN REACH.
--- NOTE | 2020-01-24 14:30 | NUR ---
PT RESTING IN BED WITH EYES CLOSED. RESP-EASY AND REGULAR. MEDICATION SEEMS TO BE EFFECTIVE. IVF INFUSING WITH NO PROBLEM.
--- NOTE | 2020-01-24 15:00 | NUR ---
ASSUMED CARE OF PATIENT AT THIS TIME. PATIENT CO NAUSEA/VOMITING. RESPS EASY AND REGULAR. PT NPO BESIDES ICE CHIPS. ASSESSMENT COMPLETE. CALL LIGHT IN REACH. WILL MONITOR.
--- NOTE | 2020-01-24 15:00 | NUR ---
REPORT GIVEN TO RN FOR NEXT SHIFT
[2020-01-24 15:50] VITALS: BP 165/82
[2020-01-24 16:30] VITALS: BP 140/78
--- NOTE | 2020-01-24 17:50 | NUR ---
MEDICATED WITH PRN ZOFRAN WILL CHECK EFFECTIVNESS.
--- NOTE | 2020-01-24 19:00 | NUR ---
PT STATES ZOFRAN WAS "SOMEWHAT" EFFECTIVE.
[2020-01-24 20:00] VITALS: BP 151/72
--- NOTE | 2020-01-24 20:00 | NUR ---
IV started left forearm with #22 angiocath after 2ND attempts. The IV site was prepped with Chloraprep. Heparin lock attached. IV solution 0.9NS infusing at 125 cc/hr. Sterile dressing applied. Patient tolerated precedure well. Procedure performed according to [facility] policy & procedure. DANIELLE SMITH
--- NOTE | 2020-01-24 22:31 | NUR ---
PHENERGAN GIVEN PER ORDER FOR NAUSEA. SEE MAR.
--- NOTE | 2020-01-24 23:30 | NUR ---
PHENERGAN HELPING WITH NAUSEA PER PT.
[2020-01-25] VITALS: BP 136/73
--- NOTE | 2020-01-25 02:22 | NUR ---
C/O NAUSEA ZOFRAN GIVEN PER ORDER. SEE MAR.
--- NOTE | 2020-01-25 03:15 | NUR ---
PATIENT RESTING ON RIGHT SIDE. NO EMESIS. ZOFAN EFFECTIVE FOR NAUSEA.
--- NOTE | 2020-01-25 03:35 | NUR ---
24 HR chart check completed.
--- NOTE | 2020-01-25 05:00 | NUR ---
PHENERGAN GIVEN PER ORDER FOR NAUSEA. SEE MAR.
--- NOTE | 2020-01-25 06:00 | NUR ---
PT. RESTING QUIETLY IN BED. PHENERGAN HELPING WITH NAUSEA.
--- NOTE | 2020-01-25 06:11 | NUR ---
PATIENT JUST WOKE UP AFTER ASKING WHEN SHE COULD HAVE CLEAR LIQUID DIET AND TURNED OVER AND VOMITED SMALL AMOUNT INTO TRASH CAN. PHENERGAN NOT EFFECTIVE.
[2020-01-25 07:10] LABS: BASO % 0.2 % (0.0-1.0); HEMATOCRIT 33.2 % (37.0-47.0); LYMPH # 1.7 10*3/uL (1.3-4.4); LYMPH % 13.1 % (27.0-41.0); MEAN CELL VOLUME 93.5 fl (81.0-99.0); MEAN CORPUSCULAR HGB 31.3 pg (27.0-31.0); MEAN CORPUSCULAR HGB CONC 33.4 g/dl (33.0-37.0); MEAN PLATELET VOLUME 10.6 fl (9.6-12.3); MONO # 0.9 10*3/uL (0.1-1.0); MONO % 7.3 % (3.0-9.0); NEUT % 78.6 % (47.0-73.0); PLATELET COUNT AUTOMATED 380 10*3/uL (130-400); RED BLOOD COUNT 3.55 10*6/uL (4.10-5.10); RED CELL DISTRI WIDTH 13.4 % (0-14.5); WHITE BLOOD COUNT 12.7 10*3/uL (4.8-10.8)
[2020-01-25 07:30] LABS: ALBUMIN 2.9 gm/dl (3.1-4.5); ALKALINE PHOSPHATASE 92 U/L (45-117); BUN 14 mg/dl (7-24); CHLORIDE 105 mmol/L (98-107); CREATININE 0.76 mg/dL (0.55-1.02); SGOT/AST 12 IU/L (3-35); SGPT/ALT 22 U/L (12-78); SODIUM 139 mmol/L (136-145); TOTAL PROTEIN 6.7 gm/dL (6.4-8.2)
[2020-01-25 08:00] VITALS: BP 157/83
--- NOTE | 2020-01-25 10:00 | NUR ---
PT TOLERATED SCRAMBLED EGGS AND YOGURT FOR BREAKFAST.
[2020-01-25 12:00] VITALS: BP 170/81
--- NOTE | 2020-01-25 12:43 | NUR ---
PT CONTINUES TO DENY NEEDS ON DISCHARGE. WILL RETURN HOME WHEN MEDICALLY STABLE.
--- NOTE | 2020-01-25 15:33 | NUR ---
ZOFRAN GIVEN FOR C/O OF NAUSEA AND VOMITING
[2020-01-25 16:00] VITALS: BP 164/76
--- NOTE | 2020-01-25 16:12 | NUR ---
PT MEDICATED WITH PRN PHENERGAN FOR C/O NAUSEA/VOMITTING AFTER EATING MASHED POTATOES. WILL MONITOR. ATTEMPTED TO CALL [facility] DON NP TO INFORM HER THAT THE PATIENT'S MOTHER WISHES TO SPEAK TO HER WITH NO ANSWER.
--- NOTE | 2020-01-25 17:08 | NUR ---
PRN PHENERGAN APPEARS EFFECTIVE. PT LYING IN BED WITH NO DISTRESS NOTED.
--- NOTE | 2020-01-25 19:00 | NUR ---
ASSUMED CARE OF PATIENT AT THIS TIME. PATIENT RESTING IN BED AND SAYS SHE IS VERY WEAK AND JUST CAN'T SEEM TO STOP VOMITING FOR LONG. NO PRN MEDICATIONS DUE AT THIS TIME. ASSESSMENT COMPLETE. CALL LIGHT IN REACH. WILL MONITOR.
[2020-01-25 20:00] VITALS: BP 150/72
--- NOTE | 2020-01-25 20:41 | NUR ---
SPOKE WITH PATIENTS MOTHER AND ANSWERED HER QUESTIONS AND UPDATED ON PATIENTS CONDITION. PATIENTS MOTHER REQUESTING TO TALK WITH THE DOCTOR. INFORMED PATIENTS MOTHER WOULD LIKE TO SPEAK WITH HIM AND THAT THE ZOFRAN AND PHENERGAN ARE ONLY HELPING FOR A SHORT PERIOD OF TIME. STATES HE WILL CALL THE PATIENTS MOTHER.
--- NOTE | 2020-01-25 22:00 | NUR ---
PATIENT STATES ZOFRAN WAS SOMEWHAT EFFECTIVE. PATIENT APPEARS TO BE RESTING COMFORTABLY AND IN NO APPARENT DISTRESS NO VOMITING NOTED. WILL MONITOR.
--- NOTE | 2020-01-25 23:53 | NUR ---
PRN PHENERGAN GIVEN FOR CO NAUSEA PER PATIENT REQUEST. WILL ASSESS EFFECTIVENESS. CALL LIGHT IN REACH.
[2020-01-26] VITALS: BP 157/67
[2020-01-26 08:00] VITALS: BP 160/70
--- NOTE | 2020-01-26 08:40 | NUR ---
PATIENT MEDICATED WITH PRN ZOFRAN PER ORDER AND REQUEST.
--- NOTE | 2020-01-26 08:50 | NUR ---
PATIENT MEDICATED WITH ONE TIME DOSE REGLAN ALSO. YVES HAS ROUNDED. PLAN IS FOR DISHCARGE HOME AFTER LUNCH PATIENT AWARE.
--- NOTE | 2020-01-26 09:40 | NUR ---
AC AND ALBA HELPED. PATIENT ATE A COUPLE BITES OF HER OMLETE. ENCOURAGED TO EAT MORE.
--- NOTE | 2020-01-26 11:46 | NUR ---
PATIENT TO BE DISCHARGED HOME.
[2020-01-26] MEDS ORDERED: CEPHALEXIN500 M1 PO (11:54)
[2020-01-26] MEDS ORDERED: ZOFRAN4 MG PO ×2 (11:54→11:55)
[2020-01-26] MEDS ORDERED: PROTONIX40 MG PO (11:55)
--- NOTE | 2020-01-26 12:18 | NUR ---
PATIENT DISCHARGED TO HOME WITH BELONGINGS.
== END 2020-01-26 12:14 | disposition home or self-care (01) | DRG 720 ==
LOC: ED 07:26 → EDHOLD 08:57 → 5E 08:57
PROVIDERS: Emergency Medicine; Internal Medicine; Registered Nurse; ADMIT Emergency Medicine
DX: A41.9 Sepsis, unspecified organism (principal); N12 Tubulo-interstitial nephritis, not specified as acute or chronic; K29.70 Gastritis, unspecified, without bleeding; E87.1 Hypo-osmolality and hyponatremia; E87.6 Hypokalemia; E10.65 Type 1 diabetes mellitus with hyperglycemia; A60.04 Herpesviral vulvovaginitis; F12.10 Cannabis abuse, uncomplicated; R11.15 Cyclical vomiting syndrome unrelated to migraine; Z79.4 Long term (current) use of insulin; Z79.899 Other long term (current) drug therapy; Z82.49 Family history of ischemic heart disease and other diseases of the circulatory system; Z83.3 Family history of diabetes mellitus; Z98.51 Tubal ligation status; E44.0 Moderate protein-calorie malnutrition

== ENCOUNTER 2022-12-05 08:40 | Inpatient (IN) | payer OTHER ==
[~2022-12-05] VITALS: Ht 162.6 cm; Wt 46.0 kg
[~2022-12-05 08:40] MED LIST changes: +CEPHALEXIN500 M1 PO; +PROTONIX40 MG PO
[2022-12-05 08:44] VITALS: BP 114/66
[2022-12-05 09:57] LABS: BASO # 0.1 10*3/uL (0.0-0.1); BASO % 0.6 % (0.0-1.0); EOS # 0.1 10*3/uL (0.0-0.4); EOS % 0.6 % (1.0-4.0); LYMPH # 2.4 10*3/uL (1.3-4.4); LYMPH % 14.6 % (27.0-41.0); MEAN CORPUSCULAR HGB 31.1 pg (27.0-31.0); MEAN CORPUSCULAR HGB CONC 33.8 g/dl (33.0-37.0); MEAN PLATELET VOLUME 9.8 fl (9.6-12.3); MONO # 0.4 10*3/uL (0.1-1.0); MONO % 2.4 % (3.0-9.0); NEUT # 13.3 10*3/uL (2.3-7.9); NEUT % 81.4 % (47.0-73.0); PLATELET COUNT AUTOMATED 437 10*3/uL (130-400); RED BLOOD COUNT 4.02 10*6/uL (4.10-5.10); RED CELL DISTRI WIDTH 12.3 % (0-14.5); WHITE BLOOD COUNT 16.4 10*3/uL (4.8-10.8)
[2022-12-05 10:13] LABS: ALKALINE PHOSPHATASE 99 U/L (46-116); BETA-HCG, QUANT < 3.0 mIU/mL (0-10); BUN 14 mg/dl (9-23); CHLORIDE 96 mmol/L (98-107); LIPASE 28 U/L (12-53); POTASSIUM 4.4 mmol/L (3.4-5.1); SGPT/ALT 25 U/L (10-49); TOTAL PROTEIN 7.8 gm/dL (6.0-8.0)
[2022-12-05 10:14] LABS: ACT PARTIAL THROMBO TIME 22.1 SECONDS (20.0-32.1)
[2022-12-05 12:36] VITALS: BP 111/61
[2022-12-05] MEDS ORDERED: ABILIFY MAINTE400 MG IM (14:24)
[2022-12-05] MEDS ORDERED: VYVANSE70 MG PO (14:25)
[2022-12-05 14:41] LABS: BUN 10 mg/dl (9-23); CHLORIDE 107 mmol/L (98-107); POTASSIUM 4.5 mmol/L (3.4-5.1)
[2022-12-05 14:44] LABS: BILIRUBIN Negative (Negative); BLOOD Negative (Negative); CLARITY Clear (Clear); COLOR Yellow (Yellow); GLUCOSE 3+ (Negative); KETONE 4+ (Negative); LEUKO ESTERASE Negative (Negative); NITRITE Negative (Negative); PH 5.5 (4.5-8.0); SPECIFIC GRAVITY 1.025 (1.001-1.030); UROBILINOGEN 0.2 E.U./dl (0.0-1.0)
[2022-12-05 14:59] LABS: BACTERIA TRACE
[2022-12-05] MEDS ORDERED: LANTUS SOL100 UNIT/1 SC (15:02)
[2022-12-05] MEDS ORDERED: INSULIN LI100 UNIT/2 SQ (15:03)
[2022-12-05 15:27] VITALS: BP 132/61
[2022-12-05 18:46] LABS: BUN 9 mg/dl (9-23); CHLORIDE 107 mmol/L (98-107); POTASSIUM 4.3 mmol/L (3.4-5.1)
[2022-12-05 18:53] LABS: URINE AMPHETAMINES Negative (1000ng/ml); URINE BARBITURATES Negative (200ng/ml); URINE BENZODIAZEPINES Negative (200ng/ml); URINE CANNABINOIDS (THC) Positive (50ng/ml); URINE COCAINE Negative (300ng/ml); URINE METHADONE Negative (300ng/ml); URINE OPIATES Negative (300ng/ml); URINE PHENCYCLIDINE Negative (25ng/ml)
[2022-12-05 19:43] VITALS: BP 133/62
[2022-12-05 22:26] LABS: BUN 10 mg/dl (9-23); CHLORIDE 108 mmol/L (98-107)
[2022-12-05 23:06] VITALS: BP 139/63
[2022-12-06] VITALS (14 sets, daily range): BP systolic 93–155; BP diastolic 51–88
[2022-12-06 02:21] LABS: BUN 14 mg/dl (9-23); CHLORIDE 108 mmol/L (98-107); POTASSIUM 3.6 mmol/L (3.4-5.1)
[2022-12-06 07:46] LABS: BASO % 0.2 % (0.0-1.0); LYMPH # 2.8 10*3/uL (1.3-4.4); LYMPH % 12.9 % (27.0-41.0); MEAN CELL VOLUME 91.9 fl (81.0-99.0); MEAN CORPUSCULAR HGB 30.7 pg (27.0-31.0); MEAN CORPUSCULAR HGB CONC 33.4 g/dl (33.0-37.0); MEAN PLATELET VOLUME 9.6 fl (9.6-12.3); MONO # 1.3 10*3/uL (0.1-1.0); MONO % 5.9 % (3.0-9.0); NEUT # 17.2 10*3/uL (2.3-7.9); NEUT % 80.5 % (47.0-73.0); PLATELET COUNT AUTOMATED 462 10*3/uL (130-400); RED BLOOD COUNT 3.81 10*6/uL (4.10-5.10); RED CELL DISTRI WIDTH 12.6 % (0-14.5); WHITE BLOOD COUNT 21.3 10*3/uL (4.8-10.8)
[2022-12-06 08:05] LABS: ALKALINE PHOSPHATASE 74 U/L (46-116); BUN 13 mg/dl (9-23); CHLORIDE 107 mmol/L (98-107); CHOLESTEROL 131 mg/dL (<200); LDL CHOLESTEROL 78 mg/dL (9-159); POTASSIUM 3.4 mmol/L (3.4-5.1); SGPT/ALT 23 U/L (10-49); THYROID STIM HORMONE (HS) 0.535 uIU/ml (0.550-4.780); TOTAL PROTEIN 6.5 gm/dL (6.0-8.0); TRIGLYCERIDES 88 mg/dl (<150)
[2022-12-07] VITALS (8 sets, daily range): BP systolic 147–166; BP diastolic 70–86
[2022-12-07 07:31] LABS: BASO % 0.2 % (0.0-1.0); HEMATOCRIT 35.9 % (37.0-47.0); LYMPH # 1.3 10*3/uL (1.3-4.4); LYMPH % 7.2 % (27.0-41.0); MEAN CELL VOLUME 92.3 fl (81.0-99.0); MEAN CORPUSCULAR HGB 30.8 pg (27.0-31.0); MEAN CORPUSCULAR HGB CONC 33.4 g/dl (33.0-37.0); MEAN PLATELET VOLUME 9.8 fl (9.6-12.3); MONO # 0.6 10*3/uL (0.1-1.0); MONO % 3.5 % (3.0-9.0); NEUT # 15.8 10*3/uL (2.3-7.9); NEUT % 88.6 % (47.0-73.0); PLATELET COUNT AUTOMATED 419 10*3/uL (130-400); RED BLOOD COUNT 3.89 10*6/uL (4.10-5.10); RED CELL DISTRI WIDTH 12.7 % (0-14.5); WHITE BLOOD COUNT 17.9 10*3/uL (4.8-10.8)
[2022-12-07 07:50] LABS: ALKALINE PHOSPHATASE 86 U/L (46-116); BUN 10 mg/dl (9-23); CHLORIDE 98 mmol/L (98-107); POTASSIUM 3.4 mmol/L (3.4-5.1); SGPT/ALT 23 U/L (10-49); TOTAL PROTEIN 7.1 gm/dL (6.0-8.0)
[2022-12-07 14:30] LABS: BUN 5 mg/dl (9-23); CHLORIDE 100 mmol/L (98-107); POTASSIUM 3.5 mmol/L (3.4-5.1)
[2022-12-07 18:01] LABS: BUN 6 mg/dl (9-23); CHLORIDE 100 mmol/L (98-107); POTASSIUM 2.8 mmol/L (3.4-5.1)
[2022-12-07 22:14] LABS: BUN 6 mg/dl (9-23); CHLORIDE 100 mmol/L (98-107); POTASSIUM 2.8 mmol/L (3.4-5.1)
[2022-12-08] VITALS: BP 143/77
[2022-12-08 04:00] VITALS: BP 165/94
[2022-12-08 05:12] LABS: CHLORIDE 100 mmol/L (98-107); POTASSIUM 3.2 mmol/L (3.4-5.1)
[2022-12-08 05:15] LABS: BUN < 5 mg/dl (9-23)
[2022-12-08 06:21] LABS: BASO % 0.3 % (0.0-1.0); EOS # 0.1 10*3/uL (0.0-0.4); EOS % 0.5 % (1.0-4.0); HEMATOCRIT 34.9 % (37.0-47.0); LYMPH # 3.2 10*3/uL (1.3-4.4); LYMPH % 28.3 % (27.0-41.0); MEAN CELL VOLUME 91.4 fl (81.0-99.0); MEAN CORPUSCULAR HGB 31.2 pg (27.0-31.0); MEAN CORPUSCULAR HGB CONC 34.1 g/dl (33.0-37.0); MEAN PLATELET VOLUME 9.9 fl (9.6-12.3); MONO # 0.8 10*3/uL (0.1-1.0); MONO % 7.4 % (3.0-9.0); NEUT % 63.2 % (47.0-73.0); PLATELET COUNT AUTOMATED 383 10*3/uL (130-400); RED BLOOD COUNT 3.82 10*6/uL (4.10-5.10); RED CELL DISTRI WIDTH 12.1 % (0-14.5); WHITE BLOOD COUNT 11.1 10*3/uL (4.8-10.8)
[2022-12-08 08:00] VITALS: BP 157/89
[2022-12-08 12:00] VITALS: BP 155/93
[2022-12-08 12:38] LABS: CHLORIDE 99 mmol/L (98-107); POTASSIUM 3.6 mmol/L (3.4-5.1)
[2022-12-08 12:45] LABS: BUN < 5 mg/dl (9-23)
[2022-12-08 16:00] VITALS: BP 146/84
[2022-12-08] MEDS ORDERED: VITAMIN D350 MC2 PO (16:32)
[2022-12-08] MEDS ORDERED: NOVOLOG FL100 UNIT/2 SC ×2 (16:32)
[2022-12-08] MEDS ORDERED: LANTUS SOL100 UNIT/1 SC (16:32)
== END 2022-12-08 18:02 | disposition home or self-care (01) | DRG 420 ==
LOC: ED 08:40 → ICCU 11:12 → EDHOLD 11:12 → ICCU 12-07 15:17
PROVIDERS: Emergency Medicine; Family Medicine; Internal Medicine; ADMIT Internal Medicine; ATTEND Internal Medicine
DX: E10.10 Type 1 diabetes mellitus with ketoacidosis without coma (principal); R65.10 Systemic inflammatory response syndrome (SIRS) of non-infectious origin without acute organ dysfunction; D64.9 Anemia, unspecified; E44.0 Moderate protein-calorie malnutrition; E87.1 Hypo-osmolality and hyponatremia; E87.8 Other disorders of electrolyte and fluid balance, not elsewhere classified; Z90.5 Acquired absence of kidney; F12.10 Cannabis abuse, uncomplicated; F10.10 Alcohol abuse, uncomplicated; D75.839 Thrombocytosis, unspecified; E55.9 Vitamin D deficiency, unspecified; Z98.51 Tubal ligation status; Z98.891 History of uterine scar from previous surgery; Z90.49 Acquired absence of other specified parts of digestive tract; Z82.49 Family history of ischemic heart disease and other diseases of the circulatory system; Z79.4 Long term (current) use of insulin; Z79.899 Other long term (current) drug therapy; Z68.1 Body mass index [BMI] 19.9 or less, adult

== ENCOUNTER 2023-06-07 16:34 | Emergency (ER) | payer OTHER ==
[~2023-06-07] VITALS: Ht 162.5 cm; Wt 54.9 kg
[~2023-06-07 16:34] MED LIST changes: +ABILIFY MAINTE400 MG IM; +INSULIN LI100 UNIT/2 SQ; +LANTUS SOL100 UNIT/1 SC; +NOVOLOG FL100 UNIT/2 SC; +VITAMIN D350 MC2 PO; +VYVANSE70 MG PO
[2023-06-07 17:12] LABS: BASO % 0.7 % (0.0-1.0); EOS % 0.7 % (1.0-4.0); HEMATOCRIT 34.1 % (37.0-47.0); LYMPH # 1.5 10*3/uL (1.3-4.4); LYMPH % 24.4 % (27.0-41.0); MEAN CELL VOLUME 93.7 fl (81.0-99.0); MEAN CORPUSCULAR HGB 31.6 pg (27.0-31.0); MEAN CORPUSCULAR HGB CONC 33.7 g/dl (33.0-37.0); MONO # 0.3 10*3/uL (0.1-1.0); MONO % 4.9 % (3.0-9.0); NEUT # 4.2 10*3/uL (2.3-7.9); PLATELET COUNT AUTOMATED 408 10*3/uL (130-400); RED BLOOD COUNT 3.64 10*6/uL (4.10-5.10); WHITE BLOOD COUNT 6.1 10*3/uL (4.8-10.8)
[2023-06-07 17:23] LABS: ACT PARTIAL THROMBO TIME 21.1 SECONDS (20.0-32.1)
[2023-06-07 17:45] LABS: ALKALINE PHOSPHATASE 133 U/L (46-116); BUN 12 mg/dl (9-23); CHLORIDE 99 mmol/L (98-107); LIPASE 38 U/L (12-53); POTASSIUM 3.8 mmol/L (3.4-5.1); SGPT/ALT 1062 U/L (10-49); TOTAL PROTEIN 6.3 gm/dL (6.0-8.0)
[2023-06-07 18:55] LABS: BILIRUBIN Negative (Negative); BLOOD 1+ (Negative); CLARITY Cloudy (Clear); COLOR Dark Yellow (Yellow); GLUCOSE 3+ (Negative); KETONE Trace (Negative); LEUKO ESTERASE Trace (Negative); NITRITE Positive (Negative); PH 5.5 (4.5-8.0); SPECIFIC GRAVITY 1.025 (1.001-1.030)
[2023-06-07 19:09] LABS: BACTERIA 4+
[2023-06-07 19:10] LABS: EPITHELIAL CELLS 21-30
[2023-06-09 05:06] LABS: HBSAG Negative (Negative); HEP B CORE AB, IGM Negative (Negative); HEPATITIS C ANTIBODY Non Reactive (Non Reactive)
== END 2023-06-08 08:55 | disposition short-term general hospital (02) ==
LOC: ED 16:34
PROVIDERS: Internal Medicine
DX: K72.00 Acute and subacute hepatic failure without coma (principal); R79.82 Elevated C-reactive protein (CRP); E87.20 Acidosis, unspecified; D64.9 Anemia, unspecified; N39.0 Urinary tract infection, site not specified; E44.1 Mild protein-calorie malnutrition; Z79.899 Other long term (current) drug therapy; Z90.49 Acquired absence of other specified parts of digestive tract; Z98.51 Tubal ligation status; Z98.890 Other specified postprocedural states

== ENCOUNTER → 2023-08-04 | Outpatient (CLI) | payer OTHER ==
[2023-08-04 14:36] LABS: ALKALINE PHOSPHATASE 101 U/L (46-116); BUN 13 mg/dl (9-23); CHLORIDE 96 mmol/L (98-107); POTASSIUM 4.5 mmol/L (3.4-5.1); SGPT/ALT 14 U/L (5-49); TOTAL PROTEIN 7.5 gm/dL (6.0-8.0)
== END | disposition home or self-care (01) ==
LOC: LAB 13:32
PROVIDERS: ATTEND Internal Medicine
DX: R74.8 Abnormal levels of other serum enzymes (principal); R19.4 Change in bowel habit

== ENCOUNTER 2023-10-30 12:09 | Emergency (ER) | payer OTHER ==
[~2023-10-30] VITALS: Ht 162.5 cm; Wt 56.7 kg
== END 2023-10-30 13:42 | disposition left against medical advice (07) ==
LOC: ED 12:09
DX: R05.9 Cough, unspecified (principal); M79.10 Myalgia, unspecified site; Z53.21 Procedure and treatment not carried out due to patient leaving prior to being seen by health care provider

== ENCOUNTER 2024-01-06 07:40 | Emergency (ER) | payer OTHER ==
[~2024-01-06] VITALS: Wt 54.0 kg
[2024-01-06] MEDS ORDERED: HUMALOG100 UNIT/2 SC (07:49)
[2024-01-06] MEDS ORDERED: FLUORESCEIN SODIUM 1 MG STRIP OPH ONE (08:00)
[2024-01-06] MEDS ORDERED: CIPROFLOXACIN2.5 M1 OPH (08:10)
== END 2024-01-06 08:29 | disposition home or self-care (01) ==
LOC: ED 07:40
DX: S05.32XA Ocular laceration without prolapse or loss of intraocular tissue, left eye, initial encounter (principal); E11.9 Type 2 diabetes mellitus without complications; Z79.4 Long term (current) use of insulin; Z90.49 Acquired absence of other specified parts of digestive tract; Z98.51 Tubal ligation status; Z98.890 Other specified postprocedural states; F12.10 Cannabis abuse, uncomplicated; W22.8XXA Striking against or struck by other objects, initial encounter; Y93.89 Activity, other specified; Y92.89 Other specified places as the place of occurrence of the external cause; Y99.8 Other external cause status

== ENCOUNTER 2024-08-02 00:45 | Emergency (ER) | payer OTHER ==
[~2024-08-02 00:45] MED LIST changes: +CIPROFLOXACIN2.5 M1 OPH; +HUMALOG100 UNIT/2 SC
[2024-08-02 01:09] LABS: BILIRUBIN Negative (Negative); BLOOD Negative (Negative); CLARITY Clear (Clear); COLOR Yellow (Yellow); GLUCOSE 3+ (Negative); KETONE 1+ (Negative); LEUKO ESTERASE Negative (Negative); NITRITE Negative (Negative); SPECIFIC GRAVITY >= 1.030 (1.001-1.030); UROBILINOGEN 0.2 E.U./dl (0.0-1.0)
[2024-08-02 01:14] LABS: BASO # 0.1 10*3/uL (0.0-0.1); BASO % 0.7 % (0.0-1.0); EOS # 0.1 10*3/uL (0.0-0.4); EOS % 1.1 % (1.0-4.0); HEMATOCRIT 38.5 % (37.0-47.0); MEAN CELL VOLUME 91.2 fl (81.0-99.0); MEAN CORPUSCULAR HGB 30.8 pg (27.0-31.0); MEAN CORPUSCULAR HGB CONC 33.8 g/dl (33.0-37.0); MEAN PLATELET VOLUME 9.2 fl (9.6-12.3); MONO # 0.7 10*3/uL (0.1-1.0); MONO % 5.5 % (3.0-9.0); NEUT # 6.9 10*3/uL (2.3-7.9); NEUT % 56.7 % (47.0-73.0); PLATELET COUNT AUTOMATED 509 10*3/uL (130-400); RED BLOOD COUNT 4.22 10*6/uL (4.10-5.10); RED CELL DISTRI WIDTH 12.5 % (0-14.5); WHITE BLOOD COUNT 12.2 10*3/uL (4.8-10.8)
[2024-08-02 01:19] LABS: EPITHELIAL CELLS 0-2; MUCOUS 2+; WBC 21-30 wbc/hpf (0-5)
[2024-08-02 01:43] LABS: ALKALINE PHOSPHATASE 87 U/L (46-116); BUN 13 mg/dl (9-23); CHLORIDE 99 mmol/L (98-107); POTASSIUM 3.8 mmol/L (3.4-5.1); SGPT/ALT 22 U/L (5-49); TOTAL PROTEIN 7.3 gm/dL (6.0-8.0)
[2024-08-02] MEDS ORDERED: Ketorolac Tromethamine 30 MG/ML VIAL IM ONE (02:00)
[2024-08-02] MEDS ORDERED: METHOCARBAMOL 500 MG TAB PO ONE (02:00)
[2024-08-02] MEDS ORDERED: METHOCARBAMOL500 M1 PO (02:02)
[2024-08-02] MEDS ORDERED: NAPROXEN250 MG PO (02:02)
== END 2024-08-02 02:11 | disposition home or self-care (01) ==
LOC: ED 00:45
PROVIDERS: Internal Medicine
DX: S29.012A Strain of muscle and tendon of back wall of thorax, initial encounter (principal); E87.1 Hypo-osmolality and hyponatremia; D72.829 Elevated white blood cell count, unspecified; F12.10 Cannabis abuse, uncomplicated; Z90.49 Acquired absence of other specified parts of digestive tract; Z98.51 Tubal ligation status; Z98.890 Other specified postprocedural states; Z79.899 Other long term (current) drug therapy; X58.XXXA Exposure to other specified factors, initial encounter; Y93.89 Activity, other specified; Y92.009 Unspecified place in unspecified non-institutional (private) residence as the place of occurrence of the external cause; Y99.8 Other external cause status

== ENCOUNTER 2024-10-12 07:28 | Emergency (ER) | payer OTHER ==
[~2024-10-12] VITALS: Wt 54.4 kg
[~2024-10-12 07:28] MED LIST changes: +METHOCARBAMOL500 M1 PO; +NAPROXEN250 MG PO
[2024-10-12] MEDS ORDERED: VYVANSE60 MG PO (07:46)
[2024-10-12] MEDS ORDERED: ADDERALL5 MG PO (07:46)
[2024-10-12] MEDS ORDERED: INDOMETHACIN50 MG PO (07:47)
[2024-10-12] MEDS ORDERED: Ketorolac Tromethamine 15 MG/ML VIAL IM ONE (08:00)
[2024-10-12] MEDS ORDERED: MELOXICAM15 MG PO (08:29)
== END 2024-10-12 08:57 | disposition home or self-care (01) ==
LOC: ED 07:28
DX: S90.31XA Contusion of right foot, initial encounter (principal); E11.9 Type 2 diabetes mellitus without complications; F12.10 Cannabis abuse, uncomplicated; Z79.4 Long term (current) use of insulin; Z90.49 Acquired absence of other specified parts of digestive tract; Z98.890 Other specified postprocedural states; W22.03XA Walked into furniture, initial encounter; Y93.89 Activity, other specified; Y92.89 Other specified places as the place of occurrence of the external cause; Y99.8 Other external cause status

== ENCOUNTER 2024-10-29 10:26 | Emergency (ER) | payer OTHER ==
[~2024-10-29] VITALS: Ht 162.5 cm; Wt 53.5 kg
[~2024-10-29 10:26] MED LIST changes: +ADDERALL5 MG PO; +INDOMETHACIN50 MG PO; +MELOXICAM15 MG PO; +VYVANSE60 MG PO
[2024-10-29] MEDS ORDERED: ACETAMINOPHEN 325 MG TAB PO ONE (11:05)
== END 2024-10-29 12:42 | disposition home or self-care (01) ==
LOC: ED 10:26
DX: S16.1XXA Strain of muscle, fascia and tendon at neck level, initial encounter (principal); S86.911A Strain of unspecified muscle(s) and tendon(s) at lower leg level, right leg, initial encounter; S80.812A Abrasion, left lower leg, initial encounter; S80.811A Abrasion, right lower leg, initial encounter; M25.532 Pain in left wrist; E10.9 Type 1 diabetes mellitus without complications; R51.9 Headache, unspecified; F12.10 Cannabis abuse, uncomplicated; Z79.4 Long term (current) use of insulin; Z90.49 Acquired absence of other specified parts of digestive tract; Z98.51 Tubal ligation status; Z98.890 Other specified postprocedural states; Y08.89XA Assault by other specified means, initial encounter; Y93.89 Activity, other specified; Y92.009 Unspecified place in unspecified non-institutional (private) residence as the place of occurrence of the external cause; Y99.8 Other external cause status

== ENCOUNTER 2024-12-28 21:29 | Emergency (ER) | payer OTHER ==
[2024-12-28] MEDS ORDERED: METHOCARBAMOL 500 MG TAB PO ONE (23:10)
[2024-12-28] MEDS ORDERED: Ketorolac Tromethamine 30 MG/ML VIAL IM ONE (23:10)
== END 2024-12-28 23:28 | disposition home or self-care (01) ==
LOC: ED 21:29
DX: S56.911A Strain of unspecified muscles, fascia and tendons at forearm level, right arm, initial encounter (principal); E11.9 Type 2 diabetes mellitus without complications; Z79.899 Other long term (current) drug therapy; Z90.49 Acquired absence of other specified parts of digestive tract; Z98.51 Tubal ligation status; Z98.890 Other specified postprocedural states; X50.0XXA Overexertion from strenuous movement or load, initial encounter; Y93.89 Activity, other specified; Y92.89 Other specified places as the place of occurrence of the external cause; Y99.0 Civilian activity done for income or pay

== ENCOUNTER 2025-01-12 22:09 | Emergency (ER) | payer OTHER ==
[~2025-01-12] VITALS: Wt 54.4 kg
[2025-01-12] MEDS ORDERED: Tdap Vaccine 0.5 ML SYR (Adult Vaccine) IM ONE (22:35)
[2025-01-12] MEDS ORDERED: Bacitracin Zinc 14 GM TUBE T ONE (22:35)
== END 2025-01-12 22:43 | disposition home or self-care (01) ==
LOC: ED 22:09
DX: S61.206A Unspecified open wound of right little finger without damage to nail, initial encounter (principal); Z79.899 Other long term (current) drug therapy; Z79.4 Long term (current) use of insulin; Y93.89 Activity, other specified; Z90.49 Acquired absence of other specified parts of digestive tract; Z98.890 Other specified postprocedural states; W26.0XXA Contact with knife, initial encounter; Y92.89 Other specified places as the place of occurrence of the external cause; Y99.8 Other external cause status

== ENCOUNTER 2025-02-10 10:29 | Emergency (ER) | payer OTHER ==
[~2025-02-10] VITALS: Ht 162.5 cm; Wt 56.2 kg
[2025-02-10 11:55] LABS: BILIRUBIN Negative (Negative); BLOOD 2+ (Negative); CLARITY Clear (Clear); COLOR Yellow (Yellow); GLUCOSE 3+ (Negative); KETONE Negative (Negative); LEUKO ESTERASE Negative (Negative); NITRITE Negative (Negative); SPECIFIC GRAVITY >= 1.030 (1.001-1.030); UROBILINOGEN 0.2 E.U./dl (0.0-1.0)
[2025-02-10 12:01] LABS: BASO # 0.1 10*3/uL (0.0-0.1); BASO % 0.7 % (0.0-1.0); EOS # 0.1 10*3/uL (0.0-0.4); EOS % 1.3 % (1.0-4.0); HEMATOCRIT 37.2 % (37.0-47.0); MEAN CELL VOLUME 91.2 fl (81.0-99.0); MEAN CORPUSCULAR HGB 30.9 pg (27.0-31.0); MEAN CORPUSCULAR HGB CONC 33.9 g/dl (33.0-37.0); MEAN PLATELET VOLUME 9.1 fl (9.6-12.3); MONO # 0.5 10*3/uL (0.1-1.0); MONO % 5.5 % (3.0-9.0); NEUT # 5.7 10*3/uL (2.3-7.9); NEUT % 66.9 % (47.0-73.0); PLATELET COUNT AUTOMATED 455 10*3/uL (130-400); RED BLOOD COUNT 4.08 10*6/uL (4.10-5.10); RED CELL DISTRI WIDTH 12.6 % (0-14.5); WHITE BLOOD COUNT 8.5 10*3/uL (4.8-10.8)
[2025-02-10 12:03] LABS: URINE AMPHETAMINES Negative (1000ng/ml); URINE BARBITURATES Negative (200ng/ml); URINE BENZODIAZEPINES Negative (200ng/ml); URINE CANNABINOIDS (THC) Positive (50ng/ml); URINE COCAINE Negative (300ng/ml); URINE METHADONE Negative (300ng/ml); URINE OPIATES Negative (300ng/ml); URINE PHENCYCLIDINE Negative (25ng/ml)
[2025-02-10 12:12] LABS: BACTERIA 1+
[2025-02-10 12:23] LABS: BUN 16 mg/dl (9-23); CHLORIDE 99 mmol/L (98-107); POTASSIUM 4.2 mmol/L (3.4-5.1)
[2025-02-10] MEDS ORDERED: SODIUM CHLORIDE 0.9% 1,000 ML IV SCH (12:30)
[2025-02-10] MEDS ORDERED: SODIUM CHLORIDE 0.9% 100 ML BAG IV ONE (12:55)
[2025-02-10] MEDS ORDERED: IOHEXOL 350 MG/ML 100 ML VIAL IV ONE (12:55)
[2025-02-10] MEDS ORDERED: NAPROSYN500 MG PO (16:12)
[2025-02-10] MEDS ORDERED: NAPROXEN 250 MG TAB PO ONE (16:15)
== END 2025-02-10 16:15 | disposition home or self-care (01) ==
LOC: ED 10:29
PROVIDERS: Nurse Practitioner Family
DX: R91.1 Solitary pulmonary nodule (principal); R09.1 Pleurisy; Z79.899 Other long term (current) drug therapy; Z79.4 Long term (current) use of insulin; Z90.49 Acquired absence of other specified parts of digestive tract; Z98.890 Other specified postprocedural states

== ENCOUNTER 2025-03-26 08:06 | Emergency (ER) | payer OTHER ==
[~2025-03-26] VITALS: Ht 162.5 cm; Wt 56.7 kg
[~2025-03-26 08:06] MED LIST changes: +NAPROSYN500 MG PO
[2025-03-26] MEDS ORDERED: TIZANIDINE HCL4 MG PO (08:31)
[2025-03-26] MEDS ORDERED: DULOXETINE HCL60 MG PO (08:31)
[2025-03-26] MEDS ORDERED: SEPTDS PO (08:36)
[2025-03-26] MEDS ORDERED: HYDROCODONE-AC1 EAC1 PO (08:36)
== END 2025-03-26 09:05 | disposition home or self-care (01) ==
LOC: ED 08:06
DX: L03.032 Cellulitis of left toe (principal); B35.1 Tinea unguium; E10.9 Type 1 diabetes mellitus without complications; Z79.4 Long term (current) use of insulin; Z79.899 Other long term (current) drug therapy; Z90.49 Acquired absence of other specified parts of digestive tract; Z98.890 Other specified postprocedural states

== ENCOUNTER 2025-04-10 19:49 | Inpatient (IN) | payer OTHER ==
[~2025-04-10 19:49] MED LIST changes: +DULOXETINE HCL60 MG PO; +HYDROCODONE-AC1 EAC1 PO; +TIZANIDINE HCL4 MG PO
[2025-04-10 20:16] VITALS: BP 135/82
[2025-04-10] MEDS ORDERED: Ondansetron Hydrochloride 4 MG/2 ML VIAL IV ONE (20:20)
[2025-04-10] MEDS ORDERED: SODIUM CHLORIDE 0.9% 1,000 ML IV ONE ×3 (20:20→21:25)
[2025-04-10 20:38] LABS: BASO # 0.1 10*3/uL (0.0-0.1); BASO % 0.8 % (0.0-1.0); EOS # 0.1 10*3/uL (0.0-0.4); EOS % 1.3 % (1.0-4.0); MEAN CELL VOLUME 92.8 fl (81.0-99.0); MEAN CORPUSCULAR HGB 30.2 pg (27.0-31.0); MEAN PLATELET VOLUME 9.5 fl (9.6-12.3); MONO # 0.6 10*3/uL (0.1-1.0); MONO % 6.3 % (3.0-9.0); NEUT # 6.3 10*3/uL (2.3-7.9); NEUT % 68.0 % (47.0-73.0); NUCLEATED RED BLOOD CELL 0.0 % (0.0-0.0); NUCLEATED RED BLOOD CELL 0.0 10*3/uL (0.0-0.0); PLATELET COUNT AUTOMATED 375 10*3/uL (130-400); RED CELL DISTRI WIDTH 12.1 % (0-14.5)
[2025-04-10 21:18] LABS: BUN 18 mg/dl (9-23)
[2025-04-10] MEDS ORDERED: INSULIN REGULAR, HUMAN 1 UNIT/0.01 ML IV ONE ×2 (21:25)
[2025-04-11] MEDS ORDERED: INSULIN REGULAR IN 0.9 % NACL 100 ML IV SCH ×2 (00:15→01:55)
[2025-04-11] MEDS ORDERED: SODIUM CHLORIDE 0.9% 1,000 ML IV ONE (00:15)
[2025-04-11 01:09] LABS: BUN 15 mg/dl (9-23)
[2025-04-11 01:31] VITALS: BP 132/64
[2025-04-11] MEDS ORDERED: ACETAMINOPHEN 325 MG TAB PO PRN (01:50)
[2025-04-11] MEDS ORDERED: Ondansetron Hydrochloride 4 MG/2 ML VIAL IV PRN (01:50)
[2025-04-11] MEDS ORDERED: BISACODYL 10 MG SUPP R PRN (01:50)
[2025-04-11] MEDS ORDERED: BISACODYL 5 MG TAB PO PRN (01:50)
[2025-04-11] MEDS ORDERED: ACETAMINOPHEN 650 MG SUPP R PRN (01:50)
[2025-04-11] MEDS ORDERED: Insulin Glargine, Recombinan 1 UNIT/0.01 ML SC ONE (01:55)
[2025-04-11] MEDS ORDERED: POTASSIUM CHLORIDE 20 MEQ/100 ML BAG IV PRN (01:55)
[2025-04-11] MEDS ORDERED: POTASSIUM CHLORIDE 20 MEQ TAB PO PRN (01:55)
== END 2025-04-11 02:02 | disposition left against medical advice (07) | DRG 420 ==
LOC: ED 19:49 → EDHOLD 04-11 01:24
PROVIDERS: Internal Medicine; ADMIT Family Medicine; ATTEND Family Medicine
DX: E10.10 Type 1 diabetes mellitus with ketoacidosis without coma (principal); J01.90 Acute sinusitis, unspecified; D64.9 Anemia, unspecified; F90.9 Attention-deficit hyperactivity disorder, unspecified type; F10.10 Alcohol abuse, uncomplicated; Z53.29 Procedure and treatment not carried out because of patient's decision for other reasons; Z79.899 Other long term (current) drug therapy; Z79.01 Long term (current) use of anticoagulants; Z79.2 Long term (current) use of antibiotics; Z90.49 Acquired absence of other specified parts of digestive tract; Z98.891 History of uterine scar from previous surgery; Z79.4 Long term (current) use of insulin; Z82.49 Family history of ischemic heart disease and other diseases of the circulatory system; Z83.3 Family history of diabetes mellitus; Y90.0 Blood alcohol level of less than 20 mg/100 ml

== ENCOUNTER 2025-05-15 12:32 | Emergency (ER) | payer OTHER ==
[~2025-05-15] VITALS: Ht 162.5 cm; Wt 53.5 kg
[~2025-05-15 12:32] MED LIST changes: +AMPHETAMINE SA7.5 MG PO; +DOCUSATE SOD100 MG PO; +IBU800 M2 PO; +LANTUS SOL100 UNIT/1 SQ; +LOPRESSOR25 MG PO; +LOSARTAN POTASS50 M1 PO; +METRONIDAZOLE500 M1 PO; +MIRALAX119 GM PO; +ONDANSETRON HYDR4 MG PO; +PANTOPRAZOLE SO20 MG PO; +ROSUVASTATIN CA20 MG PO; +VALACYCLOVIR500 M1 PO
[2025-05-15] MEDS ORDERED: SODIUM CHLORIDE 0.9% 1,000 ML IV ONE (13:05)
[2025-05-15] MEDS ORDERED: Ondansetron Hydrochloride 4 MG/2 ML VIAL IV ONE (13:05)
[2025-05-15 13:33] LABS: URINE AMPHETAMINES Negative (1000ng/ml); URINE BARBITURATES Negative (200ng/ml); URINE BENZODIAZEPINES Negative (200ng/ml); URINE CANNABINOIDS (THC) Positive (50ng/ml); URINE COCAINE Negative (300ng/ml); URINE METHADONE Negative (300ng/ml); URINE OPIATES Negative (300ng/ml); URINE PHENCYCLIDINE Negative (25ng/ml)
[2025-05-15 13:34] LABS: BASO # 0.0 10*3/uL (0.0-0.1); BASO % 0.4 % (0.0-1.0); EOS # 0.1 10*3/uL (0.0-0.4); EOS % 0.5 % (1.0-4.0); MEAN CELL VOLUME 90.5 fl (81.0-99.0); MEAN CORPUSCULAR HGB 30.9 pg (27.0-31.0); MEAN PLATELET VOLUME 9.0 fl (9.6-12.3); MONO # 0.5 10*3/uL (0.1-1.0); MONO % 4.3 % (3.0-9.0); NEUT # 8.5 10*3/uL (2.3-7.9); NEUT % 76.5 % (47.0-73.0); NUCLEATED RED BLOOD CELL 0.0 % (0.0-0.0); NUCLEATED RED BLOOD CELL 0.0 10*3/uL (0.0-0.0); PLATELET COUNT AUTOMATED 505 10*3/uL (130-400); RED CELL DISTRI WIDTH 12.7 % (0-14.5); VENOUS BLOOD GAS O2 SAT 61.7 % (60.0-85.0)
[2025-05-15 13:54] LABS: BILIRUBIN Negative (Negative); BLOOD Negative (Negative); CLARITY Clear (Clear); COLOR Yellow (Yellow); KETONE 2+ (Negative); LEUKO ESTERASE Negative (Negative); NITRITE Negative (Negative); PH 8.0 (4.5-8.0); SPECIFIC GRAVITY 1.025 (1.001-1.030); UROBILINOGEN 0.2 E.U./dl (0.0-1.0)
[2025-05-15 14:03] LABS: BUN 9 mg/dl (9-23); SGPT/ALT 19 U/L (5-49)
[2025-05-15 14:44] LABS: BACTERIA 1+
[2025-05-15] MEDS ORDERED: Acetaminophen/Hydrocodone 5 MG/325 MG TABLET PO ONE (15:00)
[2025-05-15] MEDS ORDERED: HYDROCODONE-AC1 EAC1 PO (15:02)
[2025-05-15] MEDS ORDERED: Ondansetron4 MG PO (15:02)
== END 2025-05-15 15:15 | disposition home or self-care (01) ==
LOC: ED 12:32
PROVIDERS: Nurse Practitioner Family
DX: E10.65 Type 1 diabetes mellitus with hyperglycemia (principal); R10.9 Unspecified abdominal pain; R11.2 Nausea with vomiting, unspecified; F90.9 Attention-deficit hyperactivity disorder, unspecified type; F41.9 Anxiety disorder, unspecified; F32.A Depression, unspecified; E78.5 Hyperlipidemia, unspecified; I10 Essential (primary) hypertension; Z98.890 Other specified postprocedural states; Z90.49 Acquired absence of other specified parts of digestive tract

== ENCOUNTER 2025-06-28 11:34 | Emergency (ER) | payer OTHER ==
[~2025-06-28] VITALS: Ht 162.5 cm; Wt 56.2 kg
[~2025-06-28 11:34] MED LIST changes: +Ondansetron4 MG PO
[2025-06-28] MEDS ORDERED: ERYTHROMYCIN OPH1 GM OPH (12:05)
[2025-06-28] MEDS ORDERED: ERYTHROMYCIN 1 GM TUBE OPH ONE (12:10)
== END 2025-06-28 12:11 | disposition home or self-care (01) ==
LOC: ED 11:34
DX: H10.9 Unspecified conjunctivitis (principal); L56.8 Other specified acute skin changes due to ultraviolet radiation; Z79.899 Other long term (current) drug therapy; Z79.4 Long term (current) use of insulin; Z90.49 Acquired absence of other specified parts of digestive tract; Z98.890 Other specified postprocedural states

== ENCOUNTER 2025-08-15 08:50 | Emergency (ER) | payer OTHER ==
[~2025-08-15] VITALS: Ht 162.5 cm; Wt 49.9 kg
[~2025-08-15 08:50] MED LIST changes: +ERYTHROMYCIN OPH1 GM OPH
[2025-08-15] MEDS ORDERED: Dexamethasone Sodium Phospha 20 MG/5 ML VIAL IM ONE (09:20)
[2025-08-15] MEDS ORDERED: Acetaminophen/Hydrocodone 5 MG/325 MG TABLET PO ONE (09:55)
[2025-08-15] MEDS ORDERED: METHOCARBAMOL 750 MG TAB PO ONE (09:55)
[2025-08-15] MEDS ORDERED: METHOCARBAMOL750 M1 PO (09:57)
[2025-08-15] MEDS ORDERED: PREDNISONE50 MG PO (09:57)
== END 2025-08-15 10:12 | disposition home or self-care (01) ==
LOC: ED 08:50
DX: M54.41 Lumbago with sciatica, right side (principal); I10 Essential (primary) hypertension; E11.9 Type 2 diabetes mellitus without complications; M79.7 Fibromyalgia; F90.9 Attention-deficit hyperactivity disorder, unspecified type; F41.9 Anxiety disorder, unspecified; F32.A Depression, unspecified; Z98.890 Other specified postprocedural states; Z90.49 Acquired absence of other specified parts of digestive tract; Z98.51 Tubal ligation status

== ENCOUNTER 2025-08-18 19:26 | Inpatient (IN) | payer OTHER ==
[~2025-08-18] VITALS: Ht 162.6 cm; Wt 52.8 kg
[~2025-08-18 19:26] MED LIST changes: +METHOCARBAMOL750 M1 PO; +PREDNISONE50 MG PO
[2025-08-18 19:32] VITALS: BP 164/79
[2025-08-18] MEDS ORDERED: Ondansetron Hydrochloride 4 MG/2 ML VIAL IV ONE (19:50)
[2025-08-18] MEDS ORDERED: SODIUM CHLORIDE 0.9% 1,000 ML IV ONE (19:50)
[2025-08-18] MEDS ORDERED: AUVELITY ER 451 EACH PO (20:32)
[2025-08-18] MEDS ORDERED: NEURONTIN300 MG PO (20:33)
[2025-08-18] MEDS ORDERED: METOCLOPRAMIDE10 MG PO (20:34)
[2025-08-18 20:46] LABS: MANUAL DIFF REFLEX YES; MEAN CELL VOLUME 102.1 fl (81.0-99.0); MEAN CORPUSCULAR HGB 31.1 pg (27.0-31.0); MEAN PLATELET VOLUME 9.9 fl (9.6-12.3); NUCLEATED RED BLOOD CELL 0.0 % (0.0-0.0); NUCLEATED RED BLOOD CELL 0.0 10*3/uL (0.0-0.0); PLATELET COUNT AUTOMATED 616 10*3/uL (130-400); RED CELL DISTRI WIDTH 12.5 % (0-14.5)
[2025-08-18 20:57] VITALS: BP 112/62
[2025-08-18 21:10] LABS: BASOPHILS 1 % (0-1); PLATELET SUFFICIENCY HIGH (NORMAL)
[2025-08-18 21:55] LABS: BUN 26 mg/dl (9-23)
[2025-08-18] MEDS ORDERED: SODIUM CHLORIDE 0.9% 1,000 ML IV SCH (22:20)
[2025-08-18 22:41] LABS: BILIRUBIN Negative (Negative); BLOOD 2+ (Negative); CLARITY Clear (Clear); COLOR Yellow (Yellow); KETONE 4+ (Negative); LEUKO ESTERASE Negative (Negative); NITRITE Negative (Negative); PH 5.0 (4.5-8.0); SPECIFIC GRAVITY 1.025 (1.001-1.030); UROBILINOGEN 0.2 E.U./dl (0.0-1.0)
[2025-08-18 22:44] LABS: ABG O2 SATURATION 97.9 % (94.0-98.0); ARTERIAL BLOOD GAS PO2 154.4 mmHg (83.0-108.0)
[2025-08-18 22:46] LABS: ABG BASE EXCESS -30.5 mmol/L (-2.0-3.0)
[2025-08-18 22:47] LABS: ARTERIAL BLOOD GAS PH 6.858 (7.350-7.450)
[2025-08-18] MEDS ORDERED: INSULIN REGULAR IN 0.9 % NACL 100 ML IV SCH (22:50)
[2025-08-18 22:55] VITALS: BP 101/46
[2025-08-18 22:56] LABS: BACTERIA 1+; FINE GRANULAR CAST 0-2; MUCOUS TRACE; WBC 0-2 wbc/hpf (0-5)
[2025-08-18] MEDS ORDERED: SODIUM BICARBONATE 50 MEQ/50 ML VIAL IV ONE ×2 (23:10→23:35)
[2025-08-18 23:48] LABS: URINE AMPHETAMINES Negative (1000ng/ml); URINE BARBITURATES Negative (200ng/ml); URINE BENZODIAZEPINES Negative (200ng/ml); URINE CANNABINOIDS (THC) Negative (50ng/ml); URINE COCAINE Negative (300ng/ml); URINE METHADONE Negative (300ng/ml); URINE OPIATES Negative (300ng/ml); URINE PHENCYCLIDINE Negative (25ng/ml)
[2025-08-19] VITALS (7 sets, daily range): BP systolic 106–168; BP diastolic 48–90
[2025-08-19] MEDS ORDERED: SODIUM CHLORIDE 0.9% 1,000 ML IV ONE (00:40)
[2025-08-19 01:13] LABS: BUN 32 mg/dl (9-23)
[2025-08-19 01:27] LABS: ABG O2 SATURATION 98.7 % (94.0-98.0); ARTERIAL BLOOD GAS PO2 131.0 mmHg (83.0-108.0)
[2025-08-19 01:29] LABS: ABG BASE EXCESS -23.8 mmol/L (-2.0-3.0)
[2025-08-19] MEDS ORDERED: INSULIN REGULAR, HUMAN 1 UNIT/0.01 ML IV ONE (01:30)
[2025-08-19 01:32] LABS: ARTERIAL BLOOD GAS PH 7.11 (7.350-7.450)
[2025-08-19] MEDS ORDERED: INSULIN REGULAR IN 0.9 % NACL 100 ML IV ONE (02:05)
[2025-08-19] MEDS ORDERED: SODIUM BICARBONATE 50 MEQ/50 ML VIAL IV ONE (02:25)
[2025-08-19] MEDS ORDERED: BISACODYL 10 MG SUPP R PRN (03:10)
[2025-08-19] MEDS ORDERED: BISACODYL 5 MG TAB PO PRN (03:10)
[2025-08-19] MEDS ORDERED: ACETAMINOPHEN 650 MG SUPP R PRN (03:10)
[2025-08-19] MEDS ORDERED: ACETAMINOPHEN 325 MG TAB PO PRN (03:10)
[2025-08-19] MEDS ORDERED: INSULIN REGULAR IN 0.9 % NACL 100 ML IV SCH (03:20)
[2025-08-19] MEDS ORDERED: SODIUM CHLORIDE 0.9% 1,000 ML IV SCH (03:20)
[2025-08-19] MEDS ORDERED: POTASSIUM CHLORIDE 20 MEQ TAB PO PRN (03:20)
[2025-08-19] MEDS ORDERED: POTASSIUM CHLORIDE 20 MEQ/100 ML BAG IV PRN (03:20)
[2025-08-19] MEDS ORDERED: SODIUM CHLORIDE 0.9% 100 ML BAG IV ONE (03:30)
[2025-08-19] MEDS ORDERED: Iodixanol 320 100 ML VIAL IV ONE (03:30)
[2025-08-19] MEDS ORDERED: DEXTROSE 50% 25 GM/50 ML VIAL IV PRN (03:45)
[2025-08-19] MEDS ORDERED: Vancomycin Hydrochloride 1,000 MG in SODIUM CHLORIDE 0.9% 250 ML IV SCH (03:45)
[2025-08-19 03:59] LABS: MEAN CORPUSCULAR HGB 30.9 pg (27.0-31.0); MEAN PLATELET VOLUME 9.3 fl (9.6-12.3); NUCLEATED RED BLOOD CELL 0.0 % (0.0-0.0); NUCLEATED RED BLOOD CELL 0.0 10*3/uL (0.0-0.0); PLATELET COUNT AUTOMATED 466 10*3/uL (130-400); RED CELL DISTRI WIDTH 12.4 % (0-14.5)
[2025-08-19 04:12] LABS: MANUAL DIFF REFLEX YES
[2025-08-19 04:13] LABS: MEAN CELL VOLUME 91.7 fl (81.0-99.0)
[2025-08-19 04:19] LABS: PLATELET SUFFICIENCY HIGH (NORMAL)
[2025-08-19 04:21] LABS: STOMATOCYTE FEW
[2025-08-19] MEDS ORDERED: Vancomycin Hydrochloride 1,000 MG in SODIUM CHLORIDE 0.9% 250 ML IV ONE (04:30)
[2025-08-19 04:49] LABS: BUN 37 mg/dl (9-23); FREE T4 0.90 ng/dl (0.89-1.76); LDL CHOLESTEROL 122 mg/dL (9-159); SGPT/ALT 20 U/L (5-49)
[2025-08-19 06:13] LABS: ABG O2 SATURATION 97.9 % (94.0-98.0); ARTERIAL BLOOD GAS PH 7.38 (7.350-7.450); ARTERIAL BLOOD GAS PO2 101.4 mmHg (83.0-108.0)
[2025-08-19 06:17] LABS: ABG BASE EXCESS -10.1 mmol/L (-2.0-3.0)
[2025-08-19] MEDS ORDERED: SODIUM CHLORIDE 0.45% 1,000 ML IV SCH (07:25)
[2025-08-19] MEDS ORDERED: INSULIN LISPRO 1 UNIT/0.01 ML SQ SCH (07:30)
[2025-08-19 08:37] LABS: BUN 35.0 mg/dl (9-23)
[2025-08-19] MEDS ORDERED: DEXTROSE 5% SALINE 0.45% 1,000 ML IV SCH (08:50)
[2025-08-19] MEDS ORDERED: HEPARIN SODIUM 5,000 UNIT/ML VIAL SC SCH (10:00)
[2025-08-19 12:18] LABS: BUN 35.0 mg/dl (9-23); CPK 64.0 U/L (34-171)
[2025-08-19 16:43] LABS: BUN 34.0 mg/dl (9-23)
[2025-08-19 20:21] LABS: BUN 31 mg/dl (9-23)
[2025-08-20] VITALS: BP 162/93
[2025-08-20 00:28] LABS: BUN 27 mg/dl (9-23)
[2025-08-20 04:00] VITALS: BP 154/78
[2025-08-20 04:54] LABS: BUN 22 mg/dl (9-23)
[2025-08-20 08:00] VITALS: BP 173/102
[2025-08-20] MEDS ORDERED: Insulin Glargine, Recombinan 1 UNIT/0.01 ML SC ONE (08:05)
[2025-08-20 08:07] LABS: BASO # 0.0 10*3/uL (0.0-0.1); BASO % 0.1 % (0.0-1.0); EOS # 0.0 10*3/uL (0.0-0.4); EOS % 0.0 % (1.0-4.0); MEAN CELL VOLUME 90.1 fl (81.0-99.0); MEAN CORPUSCULAR HGB 31.3 pg (27.0-31.0); MEAN PLATELET VOLUME 8.7 fl (9.6-12.3); MONO # 0.9 10*3/uL (0.1-1.0); MONO % 4.6 % (3.0-9.0); NEUT # 15.8 10*3/uL (2.3-7.9); NEUT % 81.3 % (47.0-73.0); NUCLEATED RED BLOOD CELL 0.0 % (0.0-0.0); NUCLEATED RED BLOOD CELL 0.0 10*3/uL (0.0-0.0); PLATELET COUNT AUTOMATED 327 10*3/uL (130-400); RED CELL DISTRI WIDTH 12.7 % (0-14.5)
[2025-08-20 08:26] LABS: BUN 15 mg/dl (9-23)
[2025-08-20 12:00] VITALS: BP 152/85
[2025-08-20 12:23] LABS: BUN 15 mg/dl (9-23)
[2025-08-20] MEDS ORDERED: INSULIN HUMAN REGULAR IV SCH (12:30)
[2025-08-20] MEDS ORDERED: SODIUM CHLORIDE 0.9% IV SCH (12:30)
[2025-08-20] MEDS ORDERED: Ondansetron Hydrochloride 4 MG/2 ML VIAL IV PRN (12:30)
[2025-08-20 16:00] VITALS: BP 152/97
[2025-08-20 16:21] LABS: BUN 11 mg/dl (9-23)
[2025-08-20] MEDS ORDERED: INSULIN LISPRO 1 UNIT/0.01 ML SQ SCH (16:30)
[2025-08-20] MEDS ORDERED: POTASSIUM CHLORIDE 20 MEQ TAB PO ONE (17:55)
[2025-08-20 20:00] VITALS: BP 146/84
[2025-08-20 20:21] LABS: BUN 11 mg/dl (9-23)
[2025-08-21] VITALS: BP 113/96
[2025-08-21 05:19] LABS: BUN 10 mg/dl (9-23)
[2025-08-21] MEDS ORDERED: Pantoprazole Sodium 20 MG TAB PO SCH (06:00)
[2025-08-21 06:13] LABS: BASO # 0.0 10*3/uL (0.0-0.1); BASO % 0.2 % (0.0-1.0); EOS # 0.1 10*3/uL (0.0-0.4); EOS % 0.5 % (1.0-4.0); MEAN CELL VOLUME 91.0 fl (81.0-99.0); MEAN CORPUSCULAR HGB 31.5 pg (27.0-31.0); MEAN PLATELET VOLUME 9.3 fl (9.6-12.3); MONO # 0.5 10*3/uL (0.1-1.0); MONO % 3.8 % (3.0-9.0); NEUT # 8.1 10*3/uL (2.3-7.9); NEUT % 67.3 % (47.0-73.0); NUCLEATED RED BLOOD CELL 0.0 % (0.0-0.0); NUCLEATED RED BLOOD CELL 0.0 10*3/uL (0.0-0.0); PLATELET COUNT AUTOMATED 289 10*3/uL (130-400); RED CELL DISTRI WIDTH 12.8 % (0-14.5)
[2025-08-21] MEDS ORDERED: Insulin Glargine, Recombinan 1 UNIT/0.01 ML SC SCH (07:30)
[2025-08-21 08:00] VITALS: BP 144/96
[2025-08-21] MEDS ORDERED: BISACODYL 5 MG TAB PO SCH (11:35)
[2025-08-21 12:46] VITALS: BP 144/88
[2025-08-21 14:26] LABS: BILIRUBIN Negative (Negative); BLOOD 2+ (Negative); CLARITY Clear (Clear); COLOR Yellow (Yellow); KETONE 1+ (Negative); LEUKO ESTERASE Negative (Negative); NITRITE Negative (Negative); PH 6.0 (4.5-8.0); SPECIFIC GRAVITY 1.020 (1.001-1.030); UROBILINOGEN 0.2 E.U./dl (0.0-1.0)
[2025-08-21 15:02] LABS: BACTERIA 1+; EPITHELIAL CELLS 16-20; MUCOUS 1+
[2025-08-21 20:00] VITALS: BP 158/77
[2025-08-22] VITALS: BP 164/88
[2025-08-22 06:16] LABS: BUN 12 mg/dl (9-23)
[2025-08-22 06:18] LABS: BASO # 0.0 10*3/uL (0.0-0.1); BASO % 0.3 % (0.0-1.0); EOS # 0.1 10*3/uL (0.0-0.4); EOS % 0.9 % (1.0-4.0); MEAN CELL VOLUME 90.2 fl (81.0-99.0); MEAN CORPUSCULAR HGB 30.7 pg (27.0-31.0); MEAN PLATELET VOLUME 9.4 fl (9.6-12.3); MONO # 0.4 10*3/uL (0.1-1.0); MONO % 5.3 % (3.0-9.0); NEUT # 4.7 10*3/uL (2.3-7.9); NEUT % 58.7 % (47.0-73.0); NUCLEATED RED BLOOD CELL 0.0 % (0.0-0.0); NUCLEATED RED BLOOD CELL 0.0 10*3/uL (0.0-0.0); PLATELET COUNT AUTOMATED 271 10*3/uL (130-400); RED CELL DISTRI WIDTH 12.3 % (0-14.5)
[2025-08-22 08:00] VITALS: BP 140/88
[2025-08-22] MEDS ORDERED: GABAPENTIN 300 MG CAP PO SCH (10:00)
[2025-08-22] MEDS ORDERED: LOSARTAN POTASS50 M1 PO (11:00)
[2025-08-22 12:00] VITALS: BP 143/78
== END 2025-08-22 12:40 | disposition home or self-care (01) | DRG 420 ==
LOC: ED 19:26 → 5E 08-19 03:02 → ICCU 08-19 03:02 → EDHOLD 08-19 03:02 → ICCU 08-19 03:31 → 5E 08-21 14:49
PROVIDERS: Emergency Medicine; Student in an Organized Health Care Education/Training Program; ADMIT Student in an Organized Health Care Education/Training Program; ATTEND Student in an Organized Health Care Education/Training Program
PROC: 06HY33Z Insertion of Infusion Device into Lower Vein, Percutaneous Approach (ICD-10-PCS; principal; 2025-08-19)
DX: E10.10 Type 1 diabetes mellitus with ketoacidosis without coma (principal); N17.0 Acute kidney failure with tubular necrosis; E83.39 Other disorders of phosphorus metabolism; K31.84 Gastroparesis; E44.0 Moderate protein-calorie malnutrition; Z20.822 Contact with and (suspected) exposure to COVID-19; I10 Essential (primary) hypertension; R65.10 Systemic inflammatory response syndrome (SIRS) of non-infectious origin without acute organ dysfunction; E78.5 Hyperlipidemia, unspecified; E10.43 Type 1 diabetes mellitus with diabetic autonomic (poly)neuropathy; F12.10 Cannabis abuse, uncomplicated; E87.6 Hypokalemia; E87.1 Hypo-osmolality and hyponatremia; F10.10 Alcohol abuse, uncomplicated; E87.8 Other disorders of electrolyte and fluid balance, not elsewhere classified; D75.839 Thrombocytosis, unspecified; F90.9 Attention-deficit hyperactivity disorder, unspecified type; F41.9 Anxiety disorder, unspecified; F32.A Depression, unspecified; E87.5 Hyperkalemia; D75.89 Other specified diseases of blood and blood-forming organs; R31.9 Hematuria, unspecified; E83.51 Hypocalcemia; E10.42 Type 1 diabetes mellitus with diabetic polyneuropathy; Z79.899 Other long term (current) drug therapy; Z79.01 Long term (current) use of anticoagulants; Z79.2 Long term (current) use of antibiotics; Z79.4 Long term (current) use of insulin; Z79.82 Long term (current) use of aspirin; Z90.49 Acquired absence of other specified parts of digestive tract; Z98.891 History of uterine scar from previous surgery; Z82.49 Family history of ischemic heart disease and other diseases of the circulatory system; Z83.3 Family history of diabetes mellitus; Y90.0 Blood alcohol level of less than 20 mg/100 ml